=== PATIENT | female | born 1945 | race Caucasian/White ===

== ENCOUNTER 2016-09-12 10:03 | Outpatient (CLI) | payer MEDICARE ==
[~2016-09-12] VITALS: Ht 165.1 cm; Wt 85.5 kg
[2016-09-12 10:53] VITALS: BP 82/57; Ht 165.1 cm; Wt 85.5 kg
[2016-09-12] MEDS ORDERED: LEVOTHYROXINE100 MCG PO (10:55)
--- NOTE | 2016-09-12 13:40 | NUR ---
1330 AWAKE & ALERT SITTING UP IN BED WATCHING TV. 1ST UNIT PRBC'S INFUSING PER BLOOD TUBING & ALARUS PUMP @ 175ML/HR. NO SHORTNESS OF BREATH OR DIFFICULTY BREATHING. NO COMPLAINTS OR REQUESTS VOICED. RATE INCREASED TO 200ML/HR PER ALARUS PUMP. Joe MCKENZIE R.N.
--- NOTE | 2016-09-12 18:12 | NUR ---
1230 1ST UNIT BLOOD CHECKED AT BEDSIDE BY THIS NURSE AND BEKA CAMPOS RN INITIATED BY ALARIS PUMP AT 50/CC/HR. 1245 DENIES PROBLEMS RATE INCREASED TO 75/CC/HR 1300 RATE INCREASED TO 125/CC/HR. 1315 RATE INCREASED TO 175/CC/HR 1330 RATE INCREASED TO 200/CC/HR 1400 IV PANTENT, RATE REMAINS AT 200/CC/HR DENIES PROBLEMS 1445 BLOOD COMPLETED, LINE BEING FLUSHED WITH NS. 1500 2ND UNIT CHECKED AT BEDSIDE BY THIS NURSE AND TONY HERRERA RN INITIATED BY ALARIS PUMP AT 50/CC/HR 1515 RATE INCREASED TO 75/CC/HR 1530 RATE INCREASED TO 125/CC/HR 1545 RATE INCREASED TO 175/CC/HR 1600 RATE INCREASED TO 200/CC/HR 1630 DECLINED OFFER OF FOOD ASSISSTED UP TO BR VOIDS LG AMT. IV PATENT. 1702 BLOOD HAS COMPLETED. LINE BEING FLUSHED WITH NS. 1802ONE HOUR POST V.S. GOOD IV DC'D WITH CATH INTACT. POST CHECK DC INSTS GIVEN, VOICED UNDERSTANDING, RELEASED AMB WITH SPOUSE.
== END 2016-09-12 18:11 | disposition home or self-care (01) ==
LOC: D.OPS 10:03
DX: D64.9 Anemia, unspecified (principal)

== ENCOUNTER → 2016-09-19 13:19 | Outpatient (CLI) | payer MEDICARE ==
[2016-09-12 10:53] VITALS: BMI 31.3
[~2016-09-19 13:19] MED LIST: LEVOTHYROXINE100 MCG PO
== END | disposition home or self-care (01) ==
LOC: D.MAMMO 10:00
DX: N63 Unspecified lump in breast (principal)

== ENCOUNTER → 2016-10-18 08:29 | Outpatient (CLI) | payer MEDICARE ==
[2016-09-12 10:53] VITALS: BMI 31.3
== END | disposition home or self-care (01) ==
LOC: D.CT 08:29
DX: C50.919 Malignant neoplasm of unspecified site of unspecified female breast (principal); D64.9 Anemia, unspecified

== ENCOUNTER 2016-11-24 06:59 | Day surgery (SDC) | payer MEDICARE ==
[~2016-11-24] VITALS: Ht 165.1 cm; Wt 79.8 kg
--- NOTE | ~2016-11-24 | OP ---
PATIENT NAME: RENEA SINGLETARY MEDICAL RECORD: [id number] :47 LOCATION:D.OPS ADMISSION DATE: SURGEON: KIT SPRAGUE MD DATE OF OPERATION: 11/24/2016 PREOPERATIVE DIAGNOSES: 1. Breast cancer. 2. Coronary artery disease. 3. Hyperthyroidism. POSTOPERATIVE DIAGNOSES: 1. Breast cancer. 2. Coronary artery disease. 3. Hyperthyroidism. PROCEDURES: 1. Left subclavian vein port placement. 2. Fluoroscopic interpretation. SURGEON: Kit Sprague MD REPORT OF THE PROCEDURE: The patient's left chest was prepped and draped in sterile fashion. A needle was used to cannulate the left subclavian vein. The guidewire was advanced with ease. Fluoro was used to note that the wire was in good position in the venous system. A skin incision was made on the left lateral chest and a subcutaneous pouch was made over the pectoral fascia. The port was tunneled between this pouch and the wire exit site. The port was then sutured to the pectoral fascia using interrupted 2-0 Prolenes times 2. The catheter was cut with a beveled tip at 24 cm. The dilator trocar device was placed over the wire and the wire and dilator were removed. The catheter tip was advanced through the trocar with ease and the trocar was removed. The catheter aspirated nonpulsatile dark blood and flushed easily with heparinized saline. Fluoroscopy was used to note that the catheter tip was in good position at the right atrial superior vena caval junction. The subcutaneous tissues were reapproximated with interrupted 3-0 Vicryl and the skin was closed with subcutaneous 5-0 Monocryl. A 5 mL of 0.25% Marcaine with epinephrine were infused into the surrounding tissues and the wound was dressed appropriately. COMPLICATIONS: None. CONDITION: Stable. ANESTHESIA: General endotracheal and local. BLOOD LOSS: Minimal. TRANSINT:[id number] Voice Confirmation ID: [id number] DOCUMENT ID: [id number] OPERATIVE REPORT [id number] HAYDERRENEA KIT MCLEAN MD CC: ANA MARIA WALLACE MD and SUMIT MAGANA MD [id number] DICTATION DATE: 11/24/16 0955 LAUNDRY MANAGER: 11/24/16 12[address] [place] [address]
[2016-11-24 08:29] VITALS: BP 148/75; Ht 165.1 cm; Wt 79.8 kg
[2016-11-24 08:52] LABS: BASOPHILS 0.9 % (0-2); EOSINOPHILS 4.3 % (0-7); HEMATOCRIT 33.4 % (36.0-48.0); HEMOGLOBIN 9.4 g/dL (12-16); LYMPHOCYTES 14.6 % (15-50); MCH 22.6 pg (26.0-34.0); MCHC 28.1 g/dL (31.0-37.0); MCV 80.3 fL (80.0-100.0); MEAN PLATELET VOLUME 10.8 fL (7.4-10.4); MONOCYTES 7.6 % (2-11); NEUTROPHILS 72.6 % (40-80); PLATELET COUNT 191 10x3/uL (130-400); RBC 4.16 10x6/uL (4.00-5.40); RDW 17.7 % (11.5-14.5); WBC 4.5 10x3/uL (4.8-10.8)
[2016-11-24 09:00] LABS: ANION GAP 11.8 mmol/L (8-16); CALCIUM 8.6 mg/dL (8.5-10.1); CARBON DIOXIDE 25.9 mmol/L (21.0-32.0); POTASSIUM - SERUM 3.7 mmol/L (3.5-5.1)
[2016-11-24] MEDS ORDERED: HYDROCODON-ACE1 EAC7 PO (09:49)
--- NOTE | 2016-11-24 12:18 | NUR ---
1115 IV DC WITH CATHER TIP INTACT
== END 2016-11-24 11:30 | disposition home or self-care (01) ==
LOC: D.OPS 06:59
PROVIDERS: Anesthesiology
DX: C50.411 Malignant neoplasm of upper-outer quadrant of right female breast (principal); E05.90 Thyrotoxicosis, unspecified without thyrotoxic crisis or storm; I25.10 Atherosclerotic heart disease of native coronary artery without angina pectoris; Z01.812 Encounter for preprocedural laboratory examination

== ENCOUNTER → 2016-11-28 11:22 | Outpatient (CLI) | payer MEDICARE ==
[2016-11-24 08:29] VITALS: BMI 29.3
[~2016-11-28 11:22] MED LIST changes: +HYDROCODON-ACE1 EAC7 PO
== END | disposition home or self-care (01) ==
LOC: D.ECHO 10:00
DX: C50.411 Malignant neoplasm of upper-outer quadrant of right female breast (principal)

== ENCOUNTER 2016-12-04 15:15 | Inpatient (IN) | payer MEDICARE ==
[~2016-12-04] VITALS: Ht 165.1 cm; Wt 89.1 kg
[2016-12-04 15:52] LABS: BASOPHILS 1.3 % (0-2); EOSINOPHILS 0 % (0-7); HEMATOCRIT 29.6 % (36.0-48.0); HEMOGLOBIN 8.5 g/dL (12-16); LYMPHOCYTES 3.6 % (15-50); MCH 22.7 pg (26.0-34.0); MCHC 28.7 g/dL (31.0-37.0); MCV 78.9 fL (80.0-100.0); MONOCYTES 1.2 % (2-11); NEUTROPHILS 75.9 % (40-80); PLATELET COUNT 168 10x3/uL (130-400); RBC 3.75 10x6/uL (4.00-5.40); RDW 18.1 % (11.5-14.5); WBC 11.8 10x3/uL (4.8-10.8)
[2016-12-04 16:05] LABS: ALBUMIN 3.2 g/dL (3.4-5.0); ANION GAP 15.6 mmol/L (8-16); BILIRUBIN - TOTAL 0.53 mg/dL (0.2-1.3); CALCIUM 8.7 mg/dL (8.5-10.1); CREATININE - SERUM 1.6 mg/dL (0.6-1.3); MAGNESIUM - SERUM 1.9 mg/dL (1.8-2.4); POTASSIUM - SERUM 4.6 mmol/L (3.5-5.1); PROTEIN - SERUM 7.2 g/dL (6.4-8.2)
[2016-12-04 16:07] LABS: INR 1.08 (0.85-1.17); PROTIME 13.9 SECONDS (11.6-15.0)
--- NOTE | 2016-12-04 18:37 | NUR ---
REPORT RECIEVED FROM PETR IN ER. WAITING FOR ROOM 2113 TO BE STAT CLEANED.
[2016-12-04 18:57] LABS: % SATURATION 86 % (15-55); IRON 273 ug/dl (35-150); TOTAL IRON BIND CAPACITY 317 ug/dl (260-445)
[2016-12-04 18:59] LABS: UNSAT IRON BIND CAPACITY 44 ug/dl (150-375)
[2016-12-04 19:13] VITALS: BP 116/67
--- NOTE | 2016-12-04 19:23 | NUR ---
NOTIFIED BY PETR FLORES IN E.R. THAT DR SINGLETON DID SPEAK WITH DR JUAN.
--- NOTE | 2016-12-04 19:47 | NUR ---
RECIEVED TO ROOM 2112 FROM ER VIA STRETCHER. PT CONFUSED, PT ABLE TO STATE CORRECT NAME BUT UNSURE OF PLACE AND TIME. VITALS STABLE. RESPERATIONS EVEN ON O2 AT 3 LITERS VIA NC. LEFT CHEST INFUSAPORT WITH NS INFUSING AT KVO. DRSG INTACT. PT INCONTINENT OF BOWEL, BATH AND LINEN CHANGE COMPLETE. PLACED PT IN HOSPITAL GOWN, AND PLACED ON TELEMETRY. 86 SR PER MT. PT DENIES PAIN OR NEEDS, BED LOW, CL IN REACH, WILL CONT TO MONITOR.
--- NOTE | 2016-12-04 20:59 | NUR ---
HS MEDS GIVEN, MORPHINE 4 MG GIVEN FOR C/O PAIN, PTS DAUGHTER AT BED SIDE, BED LOW, CL IN REACH.
[2016-12-05] VITALS (29 sets, daily range): BP systolic 85–117; BP diastolic 50–97; Ht 165.1 cm; Wt 89.1 kg
--- NOTE | 2016-12-05 03:46 | NUR ---
RESTING WITH EYES CLOSED, RESPERATIONS EVEN, NO S/S DISTRESS NOTED.
--- NOTE | 2016-12-05 04:26 | NUR ---
BLOOD COORDINATOR AT BEDSIDE TO OBTAIN VITALS, CALL LIGHT IN REACH. WILL CONTINUE WITH PLAN OF CARE.
[2016-12-05 05:57] LABS: HEMATOCRIT 29.5 % (36.0-48.0); HEMOGLOBIN 8.5 g/dL (12-16); MCH 22.8 pg (26.0-34.0); MCHC 28.8 g/dL (31.0-37.0); MCV 79.1 fL (80.0-100.0); PLATELET COUNT 143 10x3/uL (130-400); RBC 3.73 10x6/uL (4.00-5.40); RDW 18.1 % (11.5-14.5)
[2016-12-05 06:03] LABS: WBC 8.4 10x3/uL (4.8-10.8)
[2016-12-05 06:12] LABS: ALBUMIN 3.2 g/dL (3.4-5.0); ANION GAP 16.1 mmol/L (8-16); BILIRUBIN - TOTAL 0.5 mg/dL (0.2-1.3); CALCIUM 8.8 mg/dL (8.5-10.1); CARBON DIOXIDE 20.9 mmol/L (21.0-32.0); PROTEIN - SERUM 6.9 g/dL (6.4-8.2)
[2016-12-05 06:14] LABS: CREATININE - SERUM 2.5 mg/dL (0.6-1.3)
[2016-12-05 06:56] LABS: ANISOCYTOSIS OCC; EOSINOPHILS 2 % (0-7); LYMPHOCYTES 13 % (15-50); MONOCYTES 1 % (2-11); NEUTROPHILS 76 % (40-80); PELGER HUET 1+; PLATELET ESTIMATE NORMAL; ROULEAUX OCC
--- NOTE | 2016-12-05 07:00 | NUR ---
REPORT RECEIVED FROM OFF [facility] NURSE. PT DISORIENTED TO TIME SAYING "20, 20, 20" REORIENTED TO 2017. NICOLE. BILATERAL PRODUCT SAFETY MANAGER EQUAL BUT WEAK. ABLE TO TO MOVE LOWER EXTEMITIES WITH EASE. HEAD KEEPS TURNING TO HER RIGHT SIDE. SEE FLOW SHEET FOR REMAINING ASSESSMENT. BREATHING NORMAL AND UNLABORED. DENIES PAIN AT THIS TIME. CALL LIGTH INR EACH. WILL CONT POC
[2016-12-05 09:33] LABS: CHOL - HDL RATIO 3.9 ratio (2.3-4.1); LDL-HDL RATIO 2.3 ratio (1.5-3.5)
--- NOTE | 2016-12-05 11:00 | NUR ---
ST ELEVATION WAS NOTICED BY [employer]. DR GALLARDO ORDER STAT EKG. 12 LEAD SHOWS ACUTE MO. DR MURRAY CONSULTED. AT BED SIDE. PT DENIES CHEST PAIN. PT NON DIAPHORETIC OR SOB. PER CARDIOLOGY, TRANSFER TO ICU. LAB EMZYMES DRAWN BUT RESULTS NOT RECIEVED. TRANSFERED TO ICU IN A STABLE CONDITION. VSS.
--- NOTE | 2016-12-05 12:09 | NUR ---
1200- REC'D PT TO ICU, VVSS, AFEBRILE, DENIES PAIN, ACCELERATED JUNCTIONAL RYTHM ON CM. BP 100/85. HR 63, ACCELERATED JUNCTIONAL RYTHM ON CM. PAGED AND SPOKE TO DR DILL AND REPORT GIVEN.
[2016-12-05 12:24] LABS: HEMATOCRIT 27.6 % (36.0-48.0); MCV 79.3 fL (80.0-100.0); PLATELET COUNT 115 10x3/uL (130-400); RBC 3.48 10x6/uL (4.00-5.40); RDW 18.3 % (11.5-14.5)
[2016-12-05 12:25] LABS: WBC 6.1 10x3/uL (4.8-10.8)
[2016-12-05 12:30] LABS: APTT 32.3 SECONDS (22.8-39.4); INR 1.26 (0.85-1.17); PROTIME 15.7 SECONDS (11.6-15.0)
[2016-12-05 13:03] LABS: CREATINE KINASE 906 UL (21-215)
[2016-12-05 13:04] LABS: TROPONIN-I 33.987 ng/mL (0.000-0.060)
[2016-12-05 13:05] LABS: CKMB 100.1 U/L (0.0-3.6)
--- NOTE | 2016-12-05 13:21 | NUR ---
CALLED CE TO DR QUIÑONEZ AND REC'D NEW ORDERS.
--- NOTE | 2016-12-05 13:47 | NUR ---
HEPARIN GTT STARTED AND DR BLAKELY HERE AND DR MALONE ROUNDED. PT TO NM FOR VQ SCAN.
--- NOTE | 2016-12-05 16:29 | NUR ---
DR QUIÑONEZ HERE. DOPAMINE STARTED. PT WITH N&V. SM AMT DARK EMESIS. DR QUIÑONEZ AT BS. REC'D ORDERS FOR PROTONIX.
[2016-12-05 17:08] LABS: HEMATOCRIT 26.4 % (36.0-48.0)
--- NOTE | 2016-12-05 17:17 | NUR ---
OCCULT EMESIS POSITIVE, CALLED RESULTS TO DR GODWIN. REC'D ORDERS TO DC HEP GTT AND PROTONIX TO START.
[2016-12-05 17:23] LABS: HEMOGLOBIN 7.4 g/dL (12-16)
--- NOTE | 2016-12-05 17:36 | NUR ---
H&H RESULTED, 2UPRBC'S ORDERED. HBG 7.4.
--- NOTE | 2016-12-05 18:46 | NUR ---
1ST U PRBCS STARTED. PT UNABLE TO SIGN CONCENT FORM BUT VERBILIZES CONCENT TO GIVE PRBC'S.
--- NOTE | 2016-12-05 19:30 | NUR ---
REC'D TO CARE, SEE SINGLE RESOURCE BOSS. U/S TECH COMPLETING ORDERED TESTS. UNIT #1 OF 2 PRBC INFUSING TO L CHEST INFUSAPORT. IVF PER FLOWSHEET. CM - ACC JUNCTIONAL, OCC PVC. PT LETHARGIC WITH ANSWER APPROP AND MARYBEL WEAKLY. NAVAS CATH PATENT AND DRAINING HAZY YELLOW URINE. EXTR COOL, SLIGHT MOTTLING NOTED TO EXTR. TEMP 97.6 - WARM BLANKET PROVIDED. ALARMS ON AND C/L IN REACH.
--- NOTE | 2016-12-05 20:06 | NUR ---
DR. GODWIN UPDATED VIA PHONE. RECENT LAB, U/S AND STATUS REPORT GIVEN. WILL TITRATE DOPAMINE UP 7.5 MCG/KG/MIN NEEDED. FAMILY AT BS AND UPDATED. CODE STATUS CLARIFIED FULL CODE. PHONE PASSWORD SET UP.
--- NOTE | 2016-12-05 20:50 | NUR ---
UNIT #1 PRBC COMPLETE, NO SIGN OF ADVERSE RXN.
--- NOTE | 2016-12-05 20:55 | NUR ---
BEGIN UNIT #2 PRBC PER MD ORDER, PER HOSPITIAL PROTOCOL.
[2016-12-05 21:00] LABS: CKMB 83.8 U/L (0.0-3.6); CREATINE KINASE 196 UL (21-215)
[2016-12-05 21:01] LABS: TROPONIN-I 22.799 ng/mL (0.000-0.060)
--- NOTE | 2016-12-05 21:10 | NUR ---
UNIT #2 PRBCS INFUSING NO SIGN OF ADVERSE RXN. PT COOPERATIVE, DENIES PAIN OR NEEDS.
[2016-12-05 22:06] LABS: CREATININE - URINE 124.4 mg/dL (30-125); PRO/CRE RATIO URINE 0.7 mg/g; PROTEIN - URINE 83.3 mg/dL (0.0-11.9)
[2016-12-05 22:18] LABS: APPEARANCE CLEAR (CLEAR); BILIRUBIN NEGATIVE (NEGATIVE); COLOR YELLOW (YELLOW); GLUCOSE NEGATIVE (NEGATIVE); KETONE NEGATIVE (NEGATIVE); NITRITE NEGATIVE (NEGATIVE); PROTEIN TRACE mg/dL (NEGATIVE); UROBILINOGEN NORMAL (NORMAL)
[2016-12-05 22:19] LABS: BACTERIA MANY /hpf (NONE SEEN); EPITHELIAL CELLS 0-5 /hpf (0-5); RED CELLS - URINE 0-5 /hpf (0-5)
--- NOTE | 2016-12-05 23:00 | NUR ---
REASSESSMENT PER FLOWSHEET, NO ACUTE CHANGES. LESS CONFUSED, ANSWERING ALL QUESTIONS APPROP. MARYBEL TO COMMAND AND EQUALLY. VSS. ALARMS ON AND C/L IN REACH.
[2016-12-06] VITALS (58 sets, daily range): BP systolic 84–136; BP diastolic 34–100
--- NOTE | 2016-12-06 00:02 | NUR ---
UNIT #2 PRBCS COMPLETE, NO SIGN OF ADVERSE RXN. PT REPOSITIONED UP IN BED FOR COMFORT. ORAL CARE PROVIDED.
[2016-12-06 00:35] LABS: MCH 24.6 pg (26.0-34.0); MCHC 30.7 g/dL (31.0-37.0); MCV 80.1 fL (80.0-100.0); PLATELET COUNT 107 10x3/uL (130-400); RBC 4.07 10x6/uL (4.00-5.40); RDW 16.8 % (11.5-14.5); WBC 5.2 10x3/uL (4.8-10.8)
[2016-12-06 00:36] LABS: HEMATOCRIT 32.6 % (36.0-48.0)
--- NOTE | 2016-12-06 01:49 | NUR ---
COMPLETE BATH AND LINEN CHANGE DONE. DA-CARE, NAVAS CARE DONE. PT UP IN BED TO L SIDE. DENIES NEEDS. NO CHANGE IN NEURO ASSESSMENT.
--- NOTE | 2016-12-06 03:00 | NUR ---
REASSESSMENT PER FLOWSHEET, NO ACUTE CHANGES. PT REPOSITIONING SELF IN BED MORE. GIVEN ICE CHIPS PER REQUEST. VSS. DOPAMINE CONT AT 5 MCG/KG/MIN.
[2016-12-06 04:22] LABS: CREATINE KINASE 692 UL (21-215); TROPONIN-I 21.212 ng/mL (0.000-0.060)
[2016-12-06 05:05] LABS: EOSINOPHILS 0 % (0-7); HEMOGLOBIN 10.1 g/dL (12-16); IMMATURE GRANULOCYTES 0.8 % (0-5); MCH 24.9 pg (26.0-34.0); MCHC 30.6 g/dL (31.0-37.0); MCV 81.5 fL (80.0-100.0); MONOCYTES 10.7 % (2-11); NEUTROPHILS 74.5 % (40-80); PLATELET COUNT 114 10x3/uL (130-400); RBC 4.05 10x6/uL (4.00-5.40); RDW 17.2 % (11.5-14.5); WBC 3.9 10x3/uL (4.8-10.8)
[2016-12-06 05:37] LABS: ALBUMIN 2.7 g/dL (3.4-5.0); ANION GAP 15.4 mmol/L (8-16); BILIRUBIN - TOTAL 1.7 mg/dL (0.2-1.3); CALCIUM 7.3 mg/dL (8.5-10.1); CARBON DIOXIDE 19.2 mmol/L (21.0-32.0); CREATININE - SERUM 1.9 mg/dL (0.6-1.3); POTASSIUM - SERUM 4.6 mmol/L (3.5-5.1); PROTEIN - SERUM 5.9 g/dL (6.4-8.2)
--- NOTE | 2016-12-06 05:56 | NUR ---
PT UP IN BED, ADMIN PO MED PER ORDERS, NO DIFFICULTY SWALLOWING.
--- NOTE | 2016-12-06 06:08 | NUR ---
AM LABS AND STATUS REPORT GIVEN TO DR. GODWIN, NO NEW ORDERS.
--- NOTE | 2016-12-06 08:26 | NUR ---
AND DAUGHTER IN THIS MORNING TO SEE PATIENT. UPDATE PROVIDED.
[2016-12-06 09:18] LABS: FOLATE (FOLIC ACID) - SERUM 4.9 ng/mL (>3.0)
--- NOTE | 2016-12-06 09:29 | NUR ---
AT BEDSIDE. QUESTIONS ANSWERED. MORNING MEDICATIONS PROVIDED. ORAL INTAKE NO DIFFICULTIES.
--- NOTE | 2016-12-06 10:14 | NUR ---
PATIENT IS AWAKE AND ALERT. SHE STATES SHE LIVES AT HOME WITH HER , Licha. SHE STATES THAT SHE IS INDEPENDENT IN HER ADL'S. PATIENT STATES HER WILL DRIVE HER HOME AT DISCHARGE. PATIENT'S PCP IS DR. MAGANA. SHE GETS HER MEDICATION AT [facility]. THERE ARE 3 STEPS TO ENTER HER HOME AND SHE STATES SHE DOES NOT HAVE ANY PROBLEM WITH THEM. PATIENT DENIES EVER HAVING HOME HEALTH AND DENIES USE OF ANY DME. PATIENT HAS ADULT CHILDREN AND A SISTER THAT ALSO LIVES IN [place] AND ASSIST NEEDED. PATIENT'S 'S PHONE: [phone]. NO DISCHARGE NEEDS IDENTIFIED A THIS TIME. PATIENT MAY BENEFIT FROM HOME HEALTH AT [facility].
--- NOTE | 2016-12-06 10:32 | NUR ---
Is the patient Alert and Oriented? Yes 0 * How many steps to enter\exit or inside your home? 3 0 * PCP DR. MAGANA 0 * Pharmacy [facility] 0 * Preadmission Environment Home with Family 0 * ADLs Independent 0 * Equipment None 0 * List name and contact numbers for known caregivers / representatives who currently or will assist patient after discharge: SPOUSE: Hamida SINGLETARY [phone] 0 * Community resources currently utilized None 0 * Additional services required to return to the preadmission environment? No 0 * Can the patient safely return to the preadmission environment? Yes 0 * Has this patient been hospitalized within the prior 30 days at any hospital? No
--- NOTE | 2016-12-06 12:26 | NUR ---
DR MALONE BY TO SEE PATIENT. ASKED FOR NS TO BE TURNED DOWN TO 100ML/HR FROM 200ML/HR.
--- NOTE | 2016-12-06 15:21 | NUR ---
VISITORS AT BEDSIDE. SAYS PT C/O BACK HURTING. REPOSITIONED FOR COMFORT. ALSO SAYS HAS SOME NAUSEA AND LOWER ABD HURTING. ZOFRAN GIVEN FOR NAUSEA.
--- NOTE | 2016-12-06 15:23 | NUR ---
2 GOLD RINGS FROM PATIENT HAND GIVEN TO FOR SAFE KEEPING SINCE HAS SWELLING IN HANDS.
--- NOTE | 2016-12-06 16:57 | NUR ---
CVL DRESSING CHANGED. PT HAD PORT PLACED SEPT 22. INCISION WITH NOTED HEALING. BEGINNING SECTION SHOWS REDNESS AND YELLOW DISCHARGE ROUGHLY THE SIZE OF AN ERASER HEAD. SITE THOROUGHLY CLEANED WITH CLORHEXADINE AND CLEAR DRESSING PLACED. WILL ALERT SURGEON OF SIGNS OF INFECTION.
--- NOTE | 2016-12-06 17:51 | NUR ---
PT HR DIPPING DOWN INTO UPPER 50'S. WENT IN TO CHECK ON HER AND REPOSITION HER. PY FOUND TO BE SOILED WITH SMALL AMOUNT OF GREEN/BLACKISH STOOL. SAMPLE COLLECTED. PT CLEANED UP. PT RESPIRATORY RATE INCREASED AND LABORED. ASKED FOR BLOOD GAS.
--- NOTE | 2016-12-06 18:12 | NUR ---
SPOKE WITH NAYELY SHAW REGARDING PT ABG VALUES. ASKED FOR D5 1/2NS WITH 3AMPS BICARB AND PUSH OF 1AMP BICARB. ORDERS ENTERED. DR OGLESBY HAS BEEN PAGED X2, NOT YET HEARD BACK FROM HIM TO NOTIFY OF PORT INCISION. ACCORDING TO RECORDS IN PT FILE, DR SPRAGUE PERFORMED ORIGINAL SURGERY. DR OGLESBY GREEN WARE CASTER FOR TODAY.
--- NOTE | 2016-12-06 19:30 | NUR ---
REPORT RECEIVED AND CARE ASSUMED INITIAL SHIFT ASSESSMENT COMPLETED SEE FLOWSHEET. DR. WALLACE HERE AND DISCUSSING PT'S STATUS WITH JEWEL RN. ORDERS ENTERED PER DR. WALLACE WHO VERBALIZED HE WANTS A DOPPLER OR THE PORTAL VEIN WITH THE US ORDERED FOR TOMORROW IVF AND LINES ARE CURRENT AND NOT DUE TO BE CHANGED AT THIS TIME. ALL ALARMS ARE SET AND VERIFIED. NEURO CHECKS ARE WITHIN NORMAL LIMITS AND NOTED THE LEFT DEVIATION OF THE TONGUE AND PT CONTINUALLY TURNING HEAD TO THE LEFT IS NOT A NEW FINDING. PEDAL PULSES ARE EXTREMELY DIFFICULT TO DOPPLER AND ARE FAINT.
--- NOTE | 2016-12-06 21:45 | NUR ---
DR. GODWIN CALLED TO OBTAIN UPDATE ON PT. DISCUSSED AT GREAT LENGTH CURRENT SITUATION. RT AT BEDSIDE FOR ABG DUE TO ABRUPT CHANGE IN MENTATION. PT HAS RAPIDLY BECOME EXTREMELY ANXIOUS, INCREASINGLY POOR COLOR AND LABORED BREATHING. NEW ORDERS RECEIVED AND NOTED.
--- NOTE | 2016-12-06 22:10 | NUR ---
LEFT MESSAGE FOR SPOUSE TO RETURN CALL TO INFORM THEM OF SITUATION WITH PT. PT IS AT THIS TIME RESTING QUIETLY WITHOUT THE GREAT ANXIETY AND AGGITATION SHE DID HAVE AT 2144. PT HAS RECEIVED LASIX 40MG IV AND DUONEB UPDRAFT. MONITORING VERY CLOSELY
--- NOTE | 2016-12-06 22:28 | NUR ---
DR. GODWIN CALLED TO CHECK ON PT. DISCUSSED ABG AND CURRENT STATUS OF PT IN WHICH SHE IS RESTING QUIETLY WITH SB/P RETURNING TO BASELINE OF LOW 90'S, URING OUTPUT OF ONLY 30CC SINCE ADMINISTRATION OF LASIX APPROXIMATELY 45 MIN AGO. PT DID RECEIVE UPDRAFT. NEW ORDERS RECEIVED TO PLACE PT ON BIPAP AND REPEAT ABG AFTER 1 HOUR. DID DISCUSS THE DISCONTINUATION OF IVF WHICH HAD CONTAINED 3 AMPS OF BICARB WITH NO NEW INTERVENTION ORDERED
--- NOTE | 2016-12-06 22:30 | NUR ---
URINE OUTPUT IN PAST HOUR TOTAL OF 125CC
--- NOTE | 2016-12-06 23:00 | NUR ---
SHIFT REASSESSMENT COMPLETED SEE FLOWSHEET. PT AT THIS TIME ON BIPAP AND TOLERATING WELL. URINE OUTPUT HAS INCREASED DRAMATICALLY
--- NOTE | 2016-12-06 23:30 | NUR ---
URINE OUTPUT FOR THIS PAST HOUR 450.
--- NOTE | 2016-12-06 23:45 | NUR ---
RT AT BEDSIDE FOR ABG PER ORDER
--- NOTE | 2016-12-06 23:47 | NUR ---
RT INCREASING FIO2 TO 50% IN RESPONSE TO ABG RESULTS
[2016-12-07] VITALS (83 sets, daily range): BP systolic 72–133; BP diastolic 35–99
--- NOTE | 2016-12-07 01:00 | NUR ---
PT RESTING WELL WHILE ON BIPAP. CONTINUE ON DOPAMINE WITH CHANGES ON IV FLOWSHEET. CONTINUE TO MONITOR PER STANDARD ICU PROTOCOL
--- NOTE | 2016-12-07 03:00 | NUR ---
SHIFT REASSESSMENT COMPLETED SEE FLOWSHEET. SO ACUTE CHANGES
--- NOTE | 2016-12-07 04:55 | NUR ---
PHONE CALL MADE TO ZORA PRICE RE OTHER PTS. MADE HIM AWARE PT IS ON BIPAP. JUST LET HIM KNOW WHEN PT BECAME SOB LAST PM CITLALI PRICE PHONED AND GAVE ORDERS FOR TXS/BIPAP. PT TOLERATING WELL AND FOLLOWUP ABGS WERE IMPROVING.
--- NOTE | 2016-12-07 05:00 | NUR ---
PT TAKEN OFF BIPAP FOR BREAK AND PLACED ON 6LN/C RT MADE AWARE OF THIS. COMPLETE BATH GIVEN AND LINENS CHANGED. CONTINUE TO TITRATE DOPAMINE FOR PARAMETERS ORDERED
[2016-12-07 05:58] LABS: BASOPHILS 0.4 % (0-2); EOSINOPHILS 0.2 % (0-7); HEMOGLOBIN 10.6 g/dL (12-16); LYMPHOCYTES 15.6 % (15-50); MCH 24.5 pg (26.0-34.0); MCHC 30.3 g/dL (31.0-37.0); MCV 80.8 fL (80.0-100.0); MONOCYTES 14.5 % (2-11); NEUTROPHILS 67.3 % (40-80); PLATELET COUNT 110 10x3/uL (130-400); RBC 4.33 10x6/uL (4.00-5.40); RDW 17.4 % (11.5-14.5)
[2016-12-07 06:06] LABS: WBC 5.5 10x3/uL (4.8-10.8)
[2016-12-07 06:14] LABS: ALBUMIN 2.8 g/dL (3.4-5.0); BILIRUBIN - TOTAL 1.5 mg/dL (0.2-1.3); CALCIUM 7.9 mg/dL (8.5-10.1); CARBON DIOXIDE 22.3 mmol/L (21.0-32.0); PROTEIN - SERUM 6.2 g/dL (6.4-8.2)
[2016-12-07 06:15] LABS: ANION GAP 15.4 mmol/L (8-16); CREATININE - SERUM 1.4 mg/dL (0.6-1.3); POTASSIUM - SERUM 3.7 mmol/L (3.5-5.1)
--- NOTE | 2016-12-07 06:15 | NUR ---
US TECH AT BEDSIDE
--- NOTE | 2016-12-07 08:10 | NUR ---
DR GODWIN HAS BEEN BY TO SEE PATIENT. DISCUSSED CARE AND PROGRESS THROUGH THE NIGHT. WANTS PHYSICAL THERAPY ORDER. DR SPRAGUE BY TO CHECK ON PORT PLACEMENT INCISION. WILL ORDER ANTIBIOTIC OINTMENT. DR JUAN HAS ALSO BEEN BY AND EXAMINED PATIENT. WANTS CTA.
--- NOTE | 2016-12-07 10:50 | NUR ---
PT HR ELEVATED AND SUSTAINED 150'S - 160'S. [address] GODWIN NOTIFIED. METOPROLOL 5MG ORDER RECEIVED. MEDICATION GIVEN. HR REDUCED TO 140'S THEN BECAME BRADICARDIC EXTREMELY QUICKLY AND THEN WENT ASYSTOLE. DR GODWIN AT BEDSIDE AT THIS TIME. PRECORDIAL THUMP UTILIZED. BRADICARDIA HR 40'S. ATROPINE REQUESTED AND ADMINISTERED. LEVOPHED ORDERED FOR TITRATION.
--- NOTE | 2016-12-07 11:00 | NUR ---
REASSESSMENT COMPLETE. PT DENIES PAIN. REPOSITIONED FOR COMFORT. CURRENTLY ON 7L NC.
--- NOTE | 2016-12-07 11:00 | NUR ---
NUTRITION F/U PT CURRENTLY ON BIPAP. CLEAR LIQUID DIET. RECOMMEND ADVANCE DIET TO FULL LIQUID WHEN MEDICALLY FEASIBLE. RD FOLLOWING
--- NOTE | 2016-12-07 11:42 | NUR ---
VSS. DR GODWIN HAS BEEN BACK BY TO SEE PATIENT. DR GALLARDO NOTIFIED OF EVENTS AND IS HERE ON UNIT. PT RESTING AT THIS TIME. DENIES PAIN.
--- NOTE | 2016-12-07 11:54 | NUR ---
DAUGHTER SULEMA CALLED FOR UPDATE. UPDATE PROVIDED ON RECENT EVENTS. PT STABLE AND RESTING AT THIS TIME. VSS. SHE WILL BE UP TO VISIT AFTER WORK THIS AFTERNOON.
--- NOTE | 2016-12-07 15:25 | NUR ---
FAMILY AT BEDSIDE. UPDATED ON THIS MORNINGS EVENTS. ALL QUESTIONS ANSWERED. PT RESTING QUIETLY. DENIES NEEDS.
--- NOTE | 2016-12-07 17:05 | NUR ---
DR GODWIN CONTACTED NURSE TO CHECK UP ON PATIENT. STATUS REVIEWED. CURRENT VITAL SIGNS PROVIDED TO HIM. IMAGING CONTACTED TO SEE ABOUT PERFORMING CTA NOW. ASKED TO HOLD OFF DOING MRI AND CTA EARLIER IN THE DAY DUE TO PATIENT INSTABILITY POST CODE. PT CANNOT GO TO MRI WHILE ON DRIPS. CTA REQUIRES PATIENT TO BE COMPLETELY STILL. PT UNABLE TO KEEP HEAD IN ONE POSITION FOR LONGER THAN 3-5 SECONDS. CONSTANTLY MOVES HEAD BACK AND FORTH. TO REEVALUATE TOMORROW.
--- NOTE | 2016-12-07 17:10 | NUR ---
PATIENT ON 2 DRIPS FOR BP. PER VICTORIANO, WILL CHECK TOMORROW TO SEE IF CAN DO MRI BRAIN.
--- NOTE | 2016-12-07 18:21 | NUR ---
DAUGHTER AT BEDSIDE. UPDATE PROVIDED. PT PARTIAL LINEN CHANGE DUE TO BBQ SAUCE ON BEDDING AND GOWN. PT PULLED UP AND REPOSITIONED FOR COMFORT.
--- NOTE | 2016-12-07 19:30 | NUR ---
REC'D TO CARE, HYPOID GEAR GENERATOR PER FLOWSHEET. PT AWAKE, SLIGHTLY LETHARGIC, BUT ANSWERS ALL QUESTIONS APPROP. VSS. IVFS INFUSING TO L CHEST INFUSAPORT, SEE FLOWSHEET, WILL TITRATE GTTS PER MD ORDER. NAVAS CATH PATENT AND DRAINING CLEAR, YELLOW URINE. ALARMS ON AND C/L IN REACH.
--- NOTE | 2016-12-07 21:25 | NUR ---
FAMILY AT BS, UPDATE GIVEN AND QUESTIONS ANSWERED.
--- NOTE | 2016-12-07 22:55 | NUR ---
REASSESSMENT PER FLOWSHEET, NO ACUTE CHANGES. LEVOPHED WEANED OFF AT THIS TIME. PT RESTING QUIETLY, DENIES NEEDS.
[2016-12-08] VITALS (65 sets, daily range): BP systolic 82–143; BP diastolic 42–98
--- NOTE | 2016-12-08 01:21 | NUR ---
COMPLETE BATH AND LINEN CHANGE DONE.
--- NOTE | 2016-12-08 03:19 | NUR ---
REASSESSMENT PER FLOWSHEET, NO ACUTE CHANGES. PT GIVEN WATER PER REQUEST. DENIES OTHER NEEDS. PCXR DONE.
--- NOTE | 2016-12-08 05:30 | NUR ---
AM LAB DRAWN.
[2016-12-08 05:49] LABS: BASOPHILS 0.4 % (0-2); EOSINOPHILS 0 % (0-7); HEMATOCRIT 32.4 % (36.0-48.0); HEMOGLOBIN 9.8 g/dL (12-16); IMMATURE GRANULOCYTES 1.2 % (0-5); LYMPHOCYTES 13.6 % (15-50); MCH 24.6 pg (26.0-34.0); MCHC 30.2 g/dL (31.0-37.0); MCV 81.4 fL (80.0-100.0); MONOCYTES 10.9 % (2-11); NEUTROPHILS 73.9 % (40-80); PLATELET COUNT 96 10x3/uL (130-400); RBC 3.98 10x6/uL (4.00-5.40)
[2016-12-08 06:13] LABS: WBC 11.2 10x3/uL (4.8-10.8)
[2016-12-08 06:17] LABS: ALBUMIN 2.6 g/dL (3.4-5.0); ANION GAP 15.1 mmol/L (8-16); BILIRUBIN - TOTAL 1.41 mg/dL (0.2-1.3); CARBON DIOXIDE 21.1 mmol/L (21.0-32.0); CREATININE - SERUM 1.4 mg/dL (0.6-1.3); POTASSIUM - SERUM 3.2 mmol/L (3.5-5.1); PROTEIN - SERUM 6.3 g/dL (6.4-8.2)
[2016-12-08 06:45] LABS: PLATELET ESTIMATE DECREASED
--- NOTE | 2016-12-08 08:03 | NUR ---
DR GODWIN BY TO SEE PATIENT.
--- NOTE | 2016-12-08 08:13 | NUR ---
PT PULLED UP AND POSITIONED FOR BREAKFAST.
--- NOTE | 2016-12-08 09:09 | NUR ---
DR JUAN CALLED TO NOTIFY PT UNABLE TO HOLD HEAD STILL AND NOT ABLE TO STABILIZE HEAD TO PERFORM CTA. HE CAME TO SEE HER AND SPEAK ABOUT HER HEAD MOVEMENTS. SAYS WE WILL HOLD OFF FOR NOW ON THE TEST AND WILL TRY TO PERFORM IT UNDER SOME SEDATION WHEN PT MORE STABLE.
--- NOTE | 2016-12-08 09:13 | NUR ---
FAMILY AT BEDSIDE AT THIS TIME. UPDATE PROVIDED
--- NOTE | 2016-12-08 10:25 | NUR ---
RESPIRATORY TX IN PROGRESS.
--- NOTE | 2016-12-08 10:57 | NUR ---
PHYSICAL THERAPY AT BEDSIDE. PT SET UP TO SIDE OF BED. NO CHANGE IN VITALS.
--- NOTE | 2016-12-08 11:45 | NUR ---
LUNCH TRAY TAKEN IN TO PATIENT ROOM. PT SLEEPING AT THIS TIME.
--- NOTE | 2016-12-08 12:46 | NUR ---
YASMANI FROM MRI CALLED TO SEE IF COULD GET PATIENT. PATIENT STILL ON DOPAMINE.
--- NOTE | 2016-12-08 12:57 | NUR ---
PT HAD REFUSED LUNCH TRAY. SAYS JUST NOT HUNGRY. ORDER FOR ENSURE OBTAINED
--- NOTE | 2016-12-08 13:19 | NUR ---
PATIENT STILL ON PRESSORS, CHECK ON 12-09-16 TO SEE IF CAN DO MRI, PER Cassidy HEAD.
--- NOTE | 2016-12-08 15:00 | NUR ---
AT BEDSIDE. UPDATE PROVIDED
--- NOTE | 2016-12-08 16:24 | NUR ---
PT OFF UNIT FOR CT OF CHEST
--- NOTE | 2016-12-08 16:25 | NUR ---
DR WALLACE HERE TO SEE PATIENT. SPEAKING TO DR GODWIN ON PHONE
--- NOTE | 2016-12-08 17:59 | NUR ---
MEDICATIONS PAUSED TO CHANGE OUT KRAUS NEEDLE. PT UNABLE TO TOLERATE HAVING MEDICATIONS PAUSED. PT BEGAN FEELING LIKE SHE COULDN'T BREATHE. RR INCREASED. PLACED ON BIPAP. RR BECOMING MORE REGULAR. WILL CONTINUE TO MONITOR. LAB AT BEDSIDE TO DRAW.
--- NOTE | 2016-12-08 18:21 | NUR ---
LAB DRAW OBTAINED.
[2016-12-08 18:31] LABS: BASOPHILS 0.3 % (0-2); EOSINOPHILS 0.1 % (0-7); HEMATOCRIT 32.1 % (36.0-48.0); HEMOGLOBIN 9.7 g/dL (12-16); IMMATURE GRANULOCYTES 2.7 % (0-5); LYMPHOCYTES 12.5 % (15-50); MCH 24.4 pg (26.0-34.0); MCHC 30.2 g/dL (31.0-37.0); MCV 80.9 fL (80.0-100.0); MONOCYTES 7.1 % (2-11); PLATELET COUNT 86 10x3/uL (130-400); RBC 3.97 10x6/uL (4.00-5.40); WBC 14.4 10x3/uL (4.8-10.8)
[2016-12-08 18:32] LABS: MEAN PLATELET VOLUME 0 fL (7.4-10.4)
[2016-12-08 18:47] LABS: INR 1.45 (0.85-1.17); PROTIME 17.6 SECONDS (11.6-15.0)
[2016-12-08 19:06] LABS: NEUTROPHILS 77.3 % (40-80); PLATELET ESTIMATE DECREASED
--- NOTE | 2016-12-08 19:30 | NUR ---
RECEIVED CARE OF PT, ASSESSMENT PER FLOWSHEET. PT ALERT AND ORIENTED X 4, ON 50% BIPAP-ABLE TO TAKE BREAKS FOR ORAL CARE AND TO ANSWER QUESTIONS-ORAL CARE PROVIDED REQUESTED AND ICE WATER PROVIDED. HR SR WITH OCC PAC'S NOTED ON CM, CRACKLES AUSCULTATED BILATERALLY WITH DIM BASES, BS HYPO X 4, NAVAS CATH PATENT WITH CONCENTRATED YELLOW URINE IN TUBING, GTT'S INFUSING TO LT CHEST PORT PER FLOWSHEET-SKIN ASSESSMENT PER FLOWSHEET. PT DENIES ANY OTHER NEEDS AT THIS TIME, WILL MONITOR.
[2016-12-08 19:33] LABS: CKMB 2.6 U/L (0.0-3.6); CREATINE KINASE 125 UL (21-215)
[2016-12-08 19:35] LABS: TROPONIN-I 8.511 ng/mL (0.000-0.060)
--- NOTE | 2016-12-08 21:05 | NUR ---
NO VISITORS PRESENT AT THIS TIME, PT DENIES ANY NEEDS, BED LOW, CALL LIGHT IN REACH.
--- NOTE | 2016-12-08 23:30 | NUR ---
REASSESSMENT PER FLOWSHEET, NO ACUTE CHANGES NOTED AT THIS TIME, HR REMAINS SR WITH OCC PAC'S, CONT POC.
[2016-12-09] VITALS (72 sets, daily range): BP systolic 79–134; BP diastolic 48–100
--- NOTE | 2016-12-09 01:49 | NUR ---
PT RESTING IN BED WITH EYES CLOSED, VSS, CONT POC.
--- NOTE | 2016-12-09 03:00 | NUR ---
REASSESSMENT PER FLOWSHEET, NO ACUTE CHANGES NOTED AT THIS TIME. ICE WATER PROVIDED PER REQUEST, VSS, CONT TO MONITOR.
--- NOTE | 2016-12-09 05:54 | NUR ---
PT RESTING IN BED WITH EYES CLOSED, VSS, CONT POC.
[2016-12-09 08:15] LABS: BASOPHILS 0.2 % (0-2); EOSINOPHILS 0.1 % (0-7); HEMATOCRIT 31.8 % (36.0-48.0); HEMOGLOBIN 9.7 g/dL (12-16); IMMATURE GRANULOCYTES 3.4 % (0-5); LYMPHOCYTES 7.2 % (15-50); MCH 24.8 pg (26.0-34.0); MCHC 30.5 g/dL (31.0-37.0); MCV 81.3 fL (80.0-100.0); MONOCYTES 5.3 % (2-11); NEUTROPHILS 83.8 % (40-80); RBC 3.91 10x6/uL (4.00-5.40); RDW 18.9 % (11.5-14.5)
[2016-12-09 08:18] LABS: PLATELET COUNT 112 10x3/uL (130-400); WBC 19.1 10x3/uL (4.8-10.8)
[2016-12-09 08:28] LABS: ALBUMIN 2.7 g/dL (3.4-5.0); ANION GAP 14.3 mmol/L (8-16); BILIRUBIN - TOTAL 1.47 mg/dL (0.2-1.3); CALCIUM 8.1 mg/dL (8.5-10.1); CARBON DIOXIDE 22.2 mmol/L (21.0-32.0); PROTEIN - SERUM 6.3 g/dL (6.4-8.2)
[2016-12-09 08:31] LABS: CREATININE - SERUM 0.9 mg/dL (0.6-1.3); POTASSIUM - SERUM 4.5 mmol/L (3.5-5.1)
--- NOTE | 2016-12-09 18:52 | NUR ---
SPOKE WITH PEANUT BLANCHER. R/T THORACENTESES, DR. CHAO ORDERED TO HOLD ASA AND PROCEDURE WILL BE DONE ONE SUNDAY
--- NOTE | 2016-12-09 19:20 | NUR ---
SHIFT ASSESSMENT COMPLETE, SEE FLOWSHEET FOR ALL FINDINGS. PATIENT A&OX4, FOLLOWS COMMANDS. DIRECTOR OF MEDIA/ARM/LEG STRENGTH 5/5 AND BILATERAL. NSR ON MONITOR. VSS. DENIES NEEDS. WILL MONITOR.
--- NOTE | 2016-12-09 21:00 | NUR ---
NIGHT MEDS GIVEN WITHOUT DIFFICULTY. NO VISIOTRS AT THIS TIME.
--- NOTE | 2016-12-09 23:05 | NUR ---
REASSESSMENT COMPLETE, SEE FLOWSHEET FOR DETAILS. NO ACUTE CHANGES. DENIES NEED AT THIS TIME. CL IN REACH, WILL MONITOR.
[2016-12-10] VITALS (60 sets, daily range): BP systolic 11–129; BP diastolic 7–99
--- NOTE | 2016-12-10 01:05 | NUR ---
RESTING WITH EYES CLOSED. VSS. CL IN REACH.
[2016-12-10 07:04] LABS: HEMATOCRIT 31.3 % (36.0-48.0); HEMOGLOBIN 9.5 g/dL (12-16); MCH 24.8 pg (26.0-34.0); MCHC 30.4 g/dL (31.0-37.0); MCV 81.7 fL (80.0-100.0); PLATELET COUNT 102 10x3/uL (130-400); RBC 3.83 10x6/uL (4.00-5.40); RDW 18.7 % (11.5-14.5); WBC 23.1 10x3/uL (4.8-10.8)
--- NOTE | 2016-12-10 07:08 | NUR ---
PHARMACY CALLED ABOUT RESHEDULING DOXYCYCLINE.
[2016-12-10 07:17] LABS: ALBUMIN 2.8 g/dL (3.4-5.0); BILIRUBIN - TOTAL 1.1 mg/dL (0.2-1.3); CALCIUM 8.4 mg/dL (8.5-10.1); CARBON DIOXIDE 25.2 mmol/L (21.0-32.0); CREATININE - SERUM 1.1 mg/dL (0.6-1.3); PROTEIN - SERUM 6.5 g/dL (6.4-8.2)
[2016-12-10 07:18] LABS: ANION GAP 11.3 mmol/L (8-16); POTASSIUM - SERUM 3.5 mmol/L (3.5-5.1)
[2016-12-10 07:26] LABS: EOSINOPHILS 1 % (0-7); LYMPHOCYTES 4 % (15-50); MONOCYTES 1 % (2-11); NEUTROPHILS 94 % (40-80)
[2016-12-10 07:27] LABS: PLATELET ESTIMATE DECREASED
--- NOTE | 2016-12-10 11:36 | NUR ---
PT UNABLE TO COME OFF IV PUMP. CANNOT DO MRI TODAY. WILL CHECK BACK TOMORROW.
--- NOTE | 2016-12-10 19:00 | NUR ---
PT LAYING IN BED AWAKE AND ALERT. 6 LPM OXYGEN VIA NC. S1S2 PRESENT. RADIAL PULSES WEAK TO PALPATION. PEDAL PULSES PALP. TELEMETRY MONITORING HR OF 100. NAVAS CATHETER TO GRAVITY, SECURED, DRAINING CLEAR YELLOW URINE. SKIN WARM AND DRY. BRUISES NOTED TO ARMS BILAT. LT CHEST SCAB/SORES NOTED. LT CHEST IMPLANTED PORT, PATENT, DRESSING CDI. SEE FLOW SHEET FOR COMPLETE ASSESSMENT. WILL CONTINUE TO MONITOR.
--- NOTE | 2016-12-10 21:00 | NUR ---
DAUGHTER AT BEDSIDE, REPORT GIVEN. QUESTIONS ANSWERED. PT DENIES NEEDS AT THIS TIME. WILL CONTINUE TO MONITOR.
--- NOTE | 2016-12-10 23:00 | NUR ---
REASSESSMENT COMPLETED PER FLOW SHEET, MINIMAL CHANGES NOTED. NO DISTRESS NOTED AT THIS TIME. CALL LIGHT WITHIN REACH. BED IN LOWEST POSITION. WILL CONTINUE TO MONITOR.
[2016-12-11] VITALS (54 sets, daily range): BP systolic 86–118; BP diastolic 51–89
--- NOTE | 2016-12-11 01:00 | NUR ---
PT LAYING IN BED RESTING. DENIES NEEDS AT THIS TIME. CALL LIGHT WITHIN REACH. BED IN LOWEST POSITION. WILL CONTINUE TO MONITOR.
--- NOTE | 2016-12-11 03:00 | NUR ---
REASSESSMENT COMPLETED PER FLOW SHEET, SEE FOR DETAILS. NO DISTRESS NOTED AT THIS TIME. DENIES NEEDS. CALL LIGHT WITHIN REACH. BED IN LOWEST POSITION. WILL CONTINUE TO MONITOR.
[2016-12-11 04:24] LABS: BASOPHILS 0.7 % (0-2); EOSINOPHILS 0.1 % (0-7); HEMATOCRIT 29.6 % (36.0-48.0); HEMOGLOBIN 9.1 g/dL (12-16); IMMATURE GRANULOCYTES 4.5 % (0-5); LYMPHOCYTES 7.5 % (15-50); MCH 24.9 pg (26.0-34.0); MCHC 30.7 g/dL (31.0-37.0); MCV 81.1 fL (80.0-100.0); NEUTROPHILS 82.2 % (40-80); PLATELET COUNT 93 10x3/uL (130-400); RBC 3.65 10x6/uL (4.00-5.40); WBC 18.3 10x3/uL (4.8-10.8)
[2016-12-11 04:41] LABS: ALBUMIN 2.6 g/dL (3.4-5.0); ANION GAP 18.1 mmol/L (8-16); BILIRUBIN - TOTAL 1.15 mg/dL (0.2-1.3); CALCIUM 8.7 mg/dL (8.5-10.1); CARBON DIOXIDE 20.6 mmol/L (21.0-32.0); CREATININE - SERUM 0.9 mg/dL (0.6-1.3); MAGNESIUM - SERUM 2.4 mg/dL (1.8-2.4); PROTEIN - SERUM 6.8 g/dL (6.4-8.2)
[2016-12-11 04:42] LABS: POTASSIUM - SERUM 4.7 mmol/L (3.5-5.1)
--- NOTE | 2016-12-11 05:00 | NUR ---
PT LAYING IN BED RESTING. NO DISTRESS NOTED AT THIS TIME. DENIES NEEDS. CALL LIGHT WITHIN REACH. BED IN LOWEST POSITION. WILL CONTINUE TO MONITOR.
--- NOTE | 2016-12-11 10:40 | NUR ---
NUTRITION F/U PT UP IN CHAIR. PER NURSING PT TOLERATING REG DIET WITH GOOD INTAKE BREAKFAST. DID NOT DRINK ENSURE THIS AM. WILL CONTINUE TO PROVIDE DIET, ENSURE. MONITOR PO INTAKE. RD FOLLOWING
--- NOTE | 2016-12-11 10:45 | NUR ---
PATIENT AWAKES EASILY TO VERBAL STIMULI SKIN WARM AND DRY. ATE 75% OF BREAKFAST. COUGHING UP CLEAR SPUTUM. ABD LARGE SOFT STATES IT IS TENDER, GOOD BOWEL SOUNDS. LEFT SUBCLAVIAN AREA INFUSA PORT WITH SMALL YELLOW AREA ABOVE NEEDLE. DRESSING CHANGE BIO PATCH PLACED OVER YELLOW AREA. YELLOW PATCH DID NOT MOVE WHEN CLEANED. PATIENT STATES THAT AREA IS TENDER. SHE DOES HAVE SOME LEFT SHOULDER DISCOMFORT. 3 DIFFERENT LAB PERSONNEL HAVE TRIED TO DRAW BLOOD ON PATIENT AND HAVE BEEN UNABLE TO OBTAIN BLOOD FOR PTT AT THIS TIME. UP IN CHAIR PER PT TOLERATING WELL. DOPAMINE WEANED OFF PER DR. [email or web address] MONITOR BLOOD PRESSURE
--- NOTE | 2016-12-11 15:11 | NUR ---
TO MRI PER STRETCHER. DEVELOPED A NOSE BLEED DURING SCAN PRESSURE HELD. STOPPED, DEVELOPED AGAIN AFTER MRI SCAN. PATIENT TOLERATED FAIR. CHLORHEXIDINE BATH GIVEN LINEN CHANGED. PATIENT TOLERATE WELL. SISTER HERE AT VISITING TIME. NO DISTRESS. NO MORE NOSE BLEED. OXYGEN IS HUMIFIED AT 3 LITERS PER NC
--- NOTE | 2016-12-11 19:00 | NUR ---
REPORT RECEIVED. SHIFT ASSESSMENT COMPLETED PER FLOW SHEET. PT LAYING IN BED AWAKE WATCHING TV. STATES SHE FEELS MUCH BETTER. REPORTED SOME NOSE BLEED DURING MRI PROCEDURE, THERE IS NO ACTIVE BLEEDING AT THIS TIME. 3 LITER HUMIDIFIED OXYGEN VIA NC. S1S2 PRESENT. RADIAL PULSES PALP. PEDAL PULSES AUDIBLE VIA DOPPLER. SCD'S ON. LT SUBCLAVIAN INFUSAPORT, PATENT INFUSING D5W AT 30 MLS/HR. NAVAS CATHETER TO GRAVITY, SECURED, DRAINING CLEAR JAYNA URINE. SEE FLOW SHEET FOR COMPLETE ASSESSMENT. WILL CONTINUE TO MONITOR.
--- NOTE | 2016-12-11 21:00 | NUR ---
PT LAYING IN BED RESTING, WATCHING T.V. NO DISTRESS NOTED. WILL CONTINUE TO MONITOR.
--- NOTE | 2016-12-11 22:00 | NUR ---
PT LAYING IN BED, AWAKE AND ALERT. BED BATH GIVEN. BED LINENS CHANGED. [facility] GOWN PROVIDED. DENIES NEEDS AT THIS TIME. CALL LIGHT WITHIN REACH. BED IN LOWEST POSITION. WILL CONTINUE TO MONITOR.
--- NOTE | 2016-12-11 23:00 | NUR ---
REASSESSMENT COMPLETED PER FLOW SHEET, SEE FOR DETAILS. NO ACUTE CHANGES NOTED. VSS. DENIES NEEDS AT THIS TIME. CALL LIGHT WITHIN REACH. BED IN LOWEST POSITION. WILL CONTINUE TO MONITOR.
[2016-12-12] VITALS (24 sets, daily range): BP systolic 87–123; BP diastolic 45–80
--- NOTE | 2016-12-12 00:15 | NUR ---
LT SUBCLAVIAN INFUSAPORT LEAKING AROUND SITE, SITE IS RED, AND TENDER. INFUSAPORT REMOVED. WILL CONTINUE TO MONITOR SITE.
--- NOTE | 2016-12-12 03:00 | NUR ---
REASSESSMENT COMPLETED PER FLOW SHEET, SEE FOR DETAILS. NO ACUTE CHANGES NOTED AT THIS TIME. PT DENIES NEEDS. WILL CONTINUE TO MONITOR. CALL LIGHT WITHIN REACH. BED IN LOWEST POSITION.
--- NOTE | 2016-12-12 05:00 | NUR ---
PT LAYING IN BED RESTING. NO DISTRESS NOTED AT THIS MOMENT. DENIES NEEDS. CALL LIGHT WITHIN REACH. BED IN LOWEST POSITION. WILL CONTINUE TO MONITOR.
[2016-12-12 05:27] LABS: BASOPHILS 0.1 % (0-2); EOSINOPHILS 0 % (0-7); HEMATOCRIT 28.4 % (36.0-48.0); HEMOGLOBIN 8.5 g/dL (12-16); IMMATURE GRANULOCYTES 1.1 % (0-5); LYMPHOCYTES 6.2 % (15-50); MCH 24.8 pg (26.0-34.0); MCHC 29.9 g/dL (31.0-37.0); MCV 82.8 fL (80.0-100.0); MONOCYTES 4.4 % (2-11); NEUTROPHILS 88.2 % (40-80); RBC 3.43 10x6/uL (4.00-5.40); RDW 19.9 % (11.5-14.5); WBC 14.9 10x3/uL (4.8-10.8)
[2016-12-12 05:46] LABS: APTT 32.5 SECONDS (22.8-39.4); INR 1.23 (0.85-1.17); PROTIME 15.4 SECONDS (11.6-15.0)
[2016-12-12 05:48] LABS: ALBUMIN 2.6 g/dL (3.4-5.0); ALKALINE PHOSPHATASE 154 U/L (46-116); CALCIUM 8.5 mg/dL (8.5-10.1); CARBON DIOXIDE 24.5 mmol/L (21.0-32.0); CHLORIDE - SERUM 103 mmol/L (98-107); CREATININE - SERUM 0.8 mg/dL (0.6-1.3); MAGNESIUM - SERUM 2.2 mg/dL (1.8-2.4); PROTEIN - SERUM 6.2 g/dL (6.4-8.2); SODIUM 137 mmol/L (136-145); UREA NITROGEN 11 mg/dL (7-18); eGFR NON AFRICAN AMERICAN 75 mL/min (90-120)
[2016-12-12 06:00] LABS: PLATELET COUNT 74 10x3/uL (130-400)
[2016-12-12 06:05] LABS: ALT (SGPT) 288 U/L (10-68); CALC OSMOLALITY 272 mosm/kg (275-300); GLUCOSE 104 mg/dL (74-106); POTASSIUM - SERUM 3.5 mmol/L (3.5-5.1)
--- NOTE | 2016-12-12 06:20 | NUR ---
PIV INITIATED ON LT CHEST. FLUIDS AND ANTIBIOTICS RESUMED. LT SUBCLAVIAN IMPLANTED PORT SITE IS RED BUT NO LONGER TENDER, PT REPORTS NO PAIN TO THE SITE. WILL CONTINUE TO MONITOR.
--- NOTE | 2016-12-12 07:45 | NUR ---
SHIFT ASSESSMENT VIA FLOWSHEET, SEE FOR DETAILS.
--- NOTE | 2016-12-12 08:10 | NUR ---
PT TO SPECIALS VIA BED.
--- NOTE | 2016-12-12 09:05 | NUR ---
PT RETURNED FROM THORACENTESIS, ICU MONITORS CONNECTED. PT'S AT BEDSIDE, UPDATE PROVIDED. PT VOICES NO ADDITIONAL NEEDS AT THIS TIME, CALL LIGHT WITHIN REACH.
[2016-12-12 10:23] LABS: MACROPHAGES BF 5 %; MESOTHELIALS BF 4 %; NEUT - BF 74 %
[2016-12-12 10:31] LABS: PROTEIN - BODY FLUID 2.9 G/DL
--- NOTE | 2016-12-12 11:05 | NUR ---
PT OOB WITH PHYSICAL THERAPY ASSIST.
--- NOTE | 2016-12-12 11:30 | NUR ---
REASSESSMENT VIA FLOWSHEET, SEE FOR DETAILS.
--- NOTE | 2016-12-12 13:55 | NUR ---
SPOKE WITH DR POOLE REGARDING PT RASH ON LEFT CHEST AND ARM. NEW ORDERS RECEIVED.
--- NOTE | 2016-12-12 14:45 | NUR ---
LEFT WORD WITH DR WALLACE OFFICE REGARDING PT'S INFUSAPORT.
--- NOTE | 2016-12-12 14:55 | NUR ---
LEFT UPPER ARM PIV INFILTRATED. D/C'D AND SANDEEP CARRINGTON PAGED TO PLACE NEW LINE.
--- NOTE | 2016-12-12 15:30 | NUR ---
REASSESSMENT VIA FLOWSHEET, SEE FOR DETAILS.
--- NOTE | 2016-12-12 16:25 | NUR ---
PT RETURNED FROM CT. ILANA STATES UNABLE TO COMPLETE SCAN D/T NON FUNCTIONING IV. SANDEEP CARRINGTON NOTIFIED.
--- NOTE | 2016-12-12 17:00 | NUR ---
SPOKE WITH SANDEEP CARRINGTON RN REGARDING PT IV STATUS. 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
--- NOTE | 2016-12-12 17:15 | NUR ---
PAGED DR WALLACE.
--- NOTE | 2016-12-12 19:03 | NUR ---
DR WALLACE HERE TO SEE PT. STATES PT OK TO RECEIVE PRBC FOLLOWING CVL EXCHANGE PLANNED FOR TOMORROW.
--- NOTE | 2016-12-12 19:10 | NUR ---
Recieved patient resting in bed with eyes closed, assessment completed per flowsheet. Patient AO x4, calm and cooperative. Eyes PERRLA @ 4mm with brisk response, sclera is white. S1/S2 noted NSR on telemetry with HR 93, rhythmic and regular. Breathing is even and unlabored on 3L via NC with O2 sat 96%, lung sounds clear bilateral upper and mid with diminished lower. Abdomen is round and soft with bowel sounds active x4, non-tender. Aguirre secured in place, clear yellow urine noted. Full ROM all extremities with trace swelling noted, all pulses weakly palpable with cap refill < 3 sec. R jugular CVL noted, not currently in use and will be replaced 12/13. Patient denies pain or other needs at this time, all VSS and will continue to monitor.
--- NOTE | 2016-12-12 21:00 | NUR ---
All HS meds given without difficulty, patient family at bedside. All questions answered to satisfaction, no further needs at this time. All VSS and will continue to monitor.
--- NOTE | 2016-12-12 23:10 | NUR ---
Reassessment completed per flowsheet, patient resting in bed with eyes closed. Patient AO x4, calm and cooperative. S1/S2 noted NSR on telemetry with HR 96, rhythmic and regular. Breathing is even and unlabored on 3L via NC with O2 sat 97%, lung sounds clear bilateral upper and mid with diminished lower. All pulses weakly palpable with cap refill < 3 sec, skin warm/dry to touch. Denies pain or other needs at this time, all VSS and will continue to monitor.
[2016-12-13] VITALS (25 sets, daily range): BP systolic 82–149; BP diastolic 50–100
--- NOTE | 2016-12-13 01:00 | NUR ---
Patient resting in bed with eyes closed. Aguirre care performed, patient repositioned for comfort. Denies pain or other needs at this time, all VSS and will continue to monitor.
--- NOTE | 2016-12-13 03:10 | NUR ---
Reassessment completed per flowsheet, patient resting in bed with eyes closed. Patient AO x4, calm and cooperative. S1/S2 noted NSR on telemetry with HR 91, rhythmic and regular. Breathing is slightly shallow and unlabored on 3L via NC, lung sounds clear bilateral upper with crackles noted mid and diminished lower. All pulses weakly palpable with cap refill < 3 sec, skin is warm/dry to touch. Patient denies pain or other needs at this time, all VSS and will continue to monitor.
[2016-12-13 04:06] LABS: BASOPHILS 0.1 % (0-2); EOSINOPHILS 0 % (0-7); HEMATOCRIT 28.8 % (36.0-48.0); HEMOGLOBIN 8.7 g/dL (12-16); LYMPHOCYTES 4.3 % (15-50); MCH 25.5 pg (26.0-34.0); MCHC 30.2 g/dL (31.0-37.0); MCV 84.5 fL (80.0-100.0); MONOCYTES 4.6 % (2-11); PLATELET COUNT 66 10x3/uL (130-400); RBC 3.41 10x6/uL (4.00-5.40); RDW 21.5 % (11.5-14.5); WBC 13.6 10x3/uL (4.8-10.8)
[2016-12-13 04:24] LABS: ALBUMIN 2.3 g/dL (3.4-5.0); ALKALINE PHOSPHATASE 147 U/L (46-116); ALT (SGPT) 216 U/L (10-68); CALC OSMOLALITY 267 mosm/kg (275-300); CALCIUM 8.1 mg/dL (8.5-10.1); CARBON DIOXIDE 23.6 mmol/L (21.0-32.0); CHLORIDE - SERUM 101 mmol/L (98-107); CREATININE - SERUM 0.7 mg/dL (0.6-1.3); GLUCOSE 94 mg/dL (74-106); LDH 352 U/L (81-234); PHOSPHOROUS 2.5 mg/dL (2.5-4.9); POTASSIUM - SERUM 3.7 mmol/L (3.5-5.1); PROTEIN - SERUM 6.2 g/dL (6.4-8.2); SODIUM 135 mmol/L (136-145); eGFR NON AFRICAN AMERICAN 88 mL/min (90-120)
[2016-12-13 04:31] LABS: UREA NITROGEN 8 mg/dL (7-18)
--- NOTE | 2016-12-13 05:00 | NUR ---
AM Labs collected without difficulty, patient resting in bed with eyes closed. Denies pain or other needs at this time, all VSS and will continue to monitor.
--- NOTE | 2016-12-13 07:30 | NUR ---
SHIFT ASSESSMENT VIA FLOWSHEET, SEE FOR DETAILS.
--- NOTE | 2016-12-13 08:50 | NUR ---
RIGHT NECK CVL D/C'D BY COLTEN RICKS RN WITH CATH TIP INTACT.
--- NOTE | 2016-12-13 09:10 | NUR ---
PT'S FAMILY AT BEDSIDE, UPDATE PROVIDED. VSS, PT VOICES NO ADDITIONAL NEEDS AT THIS TIME, CALL LIGHT WITHIN REACH.
--- NOTE | 2016-12-13 11:10 | NUR ---
PT TO CT VIA BED.
--- NOTE | 2016-12-13 11:30 | NUR ---
REASSESSMENT VIA FLOWSHEET, SEE FOR DETAILS.
--- NOTE | 2016-12-13 12:15 | NUR ---
LUNCH TRAY PROVIDED, PT POSITIONED FOR COMFORT. VSS, CALL LIGHT WITHIN REACH.
--- NOTE | 2016-12-13 13:10 | NUR ---
PT HERE TO GET PT OOB.
--- NOTE | 2016-12-13 14:15 | NUR ---
INITIATED INFUSION OF ONE UNIT PRBC PER ORDER.
--- NOTE | 2016-12-13 14:30 | NUR ---
NO SIGN OF TRANSFUSION REACTION NOTED AFTER 15 MINUTES.
--- NOTE | 2016-12-13 15:14 | NUR ---
PT BACK TO BED WITH PHYSICAL THERAPY ASSIST.
--- NOTE | 2016-12-13 15:30 | NUR ---
REASSESSMENT VIA FLOWSHEET, SEE FOR DETAILS.
[2016-12-13 16:14] LABS: AFB SPECIMEN PROCESSING Not Indicated (())
--- NOTE | 2016-12-13 19:40 | NUR ---
SHIFT ASSESSMENT COMPLETE AT THIS TIME. SHE IS A&O X4 WITH NO SIGNS OF ACUTE DISTRESS. S1S2 AUDIBLE, NORMAL SINUS RHYTHM. RESP RATE SHALLOW, CLEAR LUNG SOUNDS THROUGHOUT ALL LOBES. ABD IS SOFT AND NON TENDER TO TOUCH, BS ACTIVE X4. RADIAL AND PEDAL PULSES PALP. L ARM/CHEST HAS A REDDENED AREA. SCD'S REMOVED AND SKIN ASSESSED, WNL. R IJ HAS A DRESSING THAT IS CDI. R WRIST PIV INFUSING D5 @ 30 ML/HR. SHE DENIES ANY REQUESTS AT THIS TIME. WILL CONT TO MONITOR.
--- NOTE | 2016-12-13 21:20 | NUR ---
COMPLETE LINEN CHANGE AND PARTIAL BATH GIVEN. SHE HAS A SMALL DARK BROWN/GREEN BM. REPOSITIONED FOR COMFORT. SHE DENIES ANY FURTHER REQUESTS. WILL CONT WITH POC.
--- NOTE | 2016-12-13 23:30 | NUR ---
REASSESSMENT COMPLETE AT THIS TIME. SHE DENIES ANY PAIN AND SHE STATES THAT SHE DOES NOT WANT TO TURN B/C SHE IS COMFORTABLE. S1S2 AUDIBLE, HR 82 BPM NORMAL SINUS RHYTHM. RR SHALLOW BUT EVEN, CLEAR LUNG SOUNDS THROUGHOUT ALL LOBES. PRODUCTIVE COUGH WITH CLEAR SPUTUM. CALL LIGHT IN REACH. BED IN LOWEST POSITION. WILL CONT WITH POC.
[2016-12-14] VITALS (14 sets, daily range): BP systolic 99–127; BP diastolic 59–93
--- NOTE | 2016-12-14 01:30 | NUR ---
NAVAS CARE PROVIDED. PT REQUESTS TO SLEEP ON HER BACK AT THIS TIME. VSS. NO SIGNS OF ACUTE DISTRESS NOTED. WILL CONT WITH POC.
--- NOTE | 2016-12-14 03:30 | NUR ---
REASSESSMENT COMPLETE. NO CHANGES NOTED AT THIS TIME. PT STATES THAT HER NECK IS HURTING. REPOSITIONED FOR COMFORT. SHE STATES THAT SHE IS FEELING BETTER. PRODUCTIVE COUGH PRODUCING CLEAR SPUTUM. NO FURTHER CHANGES AT THIS TIME. WILL CONT WITH POC.
[2016-12-14 04:00] LABS: BASOPHILS 0.1 % (0-2); EOSINOPHILS 0.1 % (0-7); HEMATOCRIT 32.9 % (36.0-48.0); IMMATURE GRANULOCYTES 0.9 % (0-5); LYMPHOCYTES 4.3 % (15-50); MCH 26.1 pg (26.0-34.0); MCHC 30.4 g/dL (31.0-37.0); MCV 85.9 fL (80.0-100.0); MONOCYTES 5.1 % (2-11); NEUTROPHILS 89.5 % (40-80); PLATELET COUNT 66 10x3/uL (130-400); RBC 3.83 10x6/uL (4.00-5.40); RDW 21.4 % (11.5-14.5); WBC 14.8 10x3/uL (4.8-10.8)
[2016-12-14 04:15] LABS: ALBUMIN 2.5 g/dL (3.4-5.0); ALKALINE PHOSPHATASE 147 U/L (46-116); ALT (SGPT) 175 U/L (10-68); BILIRUBIN - TOTAL 0.93 mg/dL (0.2-1.3); CALC OSMOLALITY 270 mosm/kg (275-300); CALCIUM 8.5 mg/dL (8.5-10.1); CARBON DIOXIDE 26.8 mmol/L (21.0-32.0); CHLORIDE - SERUM 102 mmol/L (98-107); CREATININE - SERUM 0.8 mg/dL (0.6-1.3); GLUCOSE 107 mg/dL (74-106); MAGNESIUM - SERUM 2.1 mg/dL (1.8-2.4); PHOSPHOROUS 2.5 mg/dL (2.5-4.9); POTASSIUM - SERUM 3.9 mmol/L (3.5-5.1); PROTEIN - SERUM 6.5 g/dL (6.4-8.2); SODIUM 136 mmol/L (136-145); UREA NITROGEN 9 mg/dL (7-18); eGFR NON AFRICAN AMERICAN 75 mL/min (90-120)
--- NOTE | 2016-12-14 05:00 | NUR ---
PT IS RESTING PEACEFULLY WITH NO SIGNS OF ACUTE DISTRESS NOTED. SHE DENIES ANY REQUESTS AT THIS TIME. CALL LIGHT IN REACH. BED IN LOWEST POSITION. WILL CONT WITH POC.
--- NOTE | 2016-12-14 07:10 | NUR ---
PATIENT SHIFT ASSESSMENT IS COMPLETE. PATIENT DENIES ANY NEEDS AT THIS TIME. CALL LIGHT WITHIN REACH, BED IN LOW POSITION.
--- NOTE | 2016-12-14 09:25 | NUR ---
PATIENT HAS FAMILY AT BEDSIDE. PATIENT IS TALKING AND DENIES ANY NEEDS AT THIS TIME. CALL LIGHT WITHIN REACH, NO CHANGES IN CONDITION.
--- NOTE | 2016-12-14 10:33 | NUR ---
PHYSICAL THERAPY HERE TO ASSIST PATIENT UP TO CHAIR.
--- NOTE | 2016-12-14 10:57 | NUR ---
NUTRITION F/U UP IN CHAIR.PT RESUMED REG DIET & REPORTS GOOD PO INTAKE BREAKFAST. WILL CONTINUE TO PROVIDE DIET, HONOR FOOD PREFERENCES. MONITOR PO INTAKE. RD FOLLOWING
--- NOTE | 2016-12-14 12:47 | EC ---
PATIENT:RENEA SINGLETARY DATE OF SERVICE: 12/04/16 SEX: F MEDICAL RECORD: [id number] DATE OF : [birth year] LOCATION:[facility] AGE OF PATIENT: 71 ADMISSION DATE: 12/04/16 REFERRING PHYSICIAN: INTERPRETING PHYSICIAN: MACKENZIE GODWIN MD ECHOCARDIOGRAM REPORT ECHO CHARGES 4 ECHO COMPLETE CLINICAL DIAGNOSIS: R MCA INFARCT/ ASSESS FOR CLOTS, ELEVATED ST ASSESS RV FUNCTION ECHOCARDIOGRAPHIC MEASUREMENTS (adult normal given) AC root (d.<3.7cm) 2.4 cm LV Septum d (<1.2 cm> 1.3 cm Valve Excursion 1.5 cm LV Septum (systole) 1.5 cm Left Atria (s.<4.0cm> 3.5 cm LVPW d(<1.2cm) 1.6 cm RV (d.<2.3cm) 3.7 cm LVPW (sytole) 2.1 cm LV diastole(<5.6CM) 2.7 cm MV E-F(>70mm/sec) cm LV systole 1.5 cm LVOT Diameter 1.2 cm MV exc.(>10mm) 1.7 cm Est.ejection fraction (50-75%) % Pericardial Effusion N DOPPLER: LVIT cm/sec A 26.0 cm/sec E 93.0 cm/sec LA cm/sec RVSP 50 mmHg LVOT 83 cm/sec AOP1/2T m/s Asc. Ao 181 cm/sec RVOT 71 cm/sec RA cm/sec PA 134 cm/sec AV Gradient Peak 13.11mmHg AV Mean 8.12 mmHg AV Area 1.2 cm MV Gradient Peak 5.85 mmHg MV Mean 2.08 mmHg MV Area cm COMMENTS: Marbleizing Machine Tender: 2 JENNIFER LAROSE It Service Continuity Supervisor: 4 Dr. Godwin TAPE# PACS DATE OF SERVICE: 12/05/2016 PROCEDURE: Transthoracic echocardiogram. FINDINGS: 1. The patient has evidence of moderate concentric left ventricular hypertrophy without wall motions and a hyperdynamic ventricle with an ejection fraction of 80% to 90%. 2. The right ventricle is severely dilated between 4-5 cm. The free wall of the ECHOCARDIOGRAM REPORT [id number] RENEA SINGLETARY right ventricle does not contract and there is markedly reduced function of the right ventricle. 3. The pericardium has some [id number] pericardial effusion. Although rest parameter was not performed, there does not appear to be any collapse in the free wall of the structures of any of the ventricle or atria at any time during the evaluation, so it does not appear that the patient has any evidence of tamponade physiology. 4. The IVC is shown to be severely dilated at 3.8 cm. The IVC does not collapse. 5. The tricuspid valve has moderate tricuspid regurgitation. RVSP appears to be in the 50 to 60 mmHg indicating severe pulmonary hypertension. 6. There is trace to mild mitral regurgitation. 7. The left atrium is normal size, normal function. 8. The right atrium is severely dilated. CONCLUSIONS: The patient has evidence of hypertensive heart disease with what appears to be an acute sudden pressure overload of the right ventricle. The free wall of the right ventricle being hypokinetic in nature, but suggests that or the possibility of right ventricular infarction. It may be reasonable to repeat the echocardiogram to make sure there is no interval increase in the patient's pericardial effusion. TRANSINT:[id number] Voice Confirmation ID: [id number] DOCUMENT ID: [id number] MACKENZIE GODWIN MD at 1247 CC: [id number] DICTATION DATE: 12/05/16 165 SYSTEMS SUPPORT ENGINEER: 12/05/16 6239 ADM IN [place] [id number] [place] [id number]
--- NOTE | 2016-12-14 14:00 | OP ---
PATIENT NAME: RENEA SINGLETARY MEDICAL RECORD: [id number] :49 LOCATION:.[facility] D.2312 ADMISSION DATE:12/04/16 SURGEON: CARLO OGLESBY MD DATE OF OPERATION: 12/12/2016 PREOPERATIVE DIAGNOSES: 1. Cerebrovascular accident 2. Status post cardiac arrest. 3. Breast cancer. POSTOPERATIVE DIAGNOSES: 1. Cerebrovascular accident 2. Status post cardiac arrest. 3. Breast cancer. PROCEDURE: Insertion of right neck triple-lumen central venous catheter. SURGEON: Carlo Oglesby MD. EXPORT ADMINISTRATOR: None. BLOOD LOSS: Minimal. ANESTHESIA: Local. The patient has a very large external jugular vein on the right. It may be that it is compensatory enlarged due to a clotted right IJ. A consent form was signed. The procedure was performed with the presence of an ICU nurse. OPERATIVE COURSE: The patient was positioned in the Trendelenburg position. The right neck was sterilely prepped and draped. Local anesthetic was used to infiltrate the skin and subcutaneous tissues of the right neck. I was unable to percutaneously access the right internal jugular vein in an antegrade fashion. The patient had a very large external jugular vein. This was accessed with an Angiocath. The guidewire passed a short way. A small skin theresa was accomplished. Through the skin theresa, a 16-cm central venous line was advanced. The wire was removed. All lumens flushed easily and aspirated dark, nonpulsatile blood. The central venous line was sutured in place and can be used immediately by the nurses. TRANSINT:[id number] Voice Confirmation ID: [id number] DOCUMENT ID: [id number] CARLO OGLESBY MD at 1400 CC: [id number] DICTATION DATE: 12/12/161814 COURTESY DRIVER: 12/12/162047 ADM IN [facility] [address] [place] [address]
--- NOTE | 2016-12-14 14:06 | NUR ---
PATIENT IS STILL SITTING UP IN CHAIR AND TOLERATING WELL. PATIENT DENIES ANY NEEDS AT THIS TIME. CALL LIGHT WITHIN REACH.
--- NOTE | 2016-12-14 14:32 | NUR ---
PHYSICAL therapy in room to walk patient.
--- NOTE | 2016-12-14 16:15 | NUR ---
REPORT CALLED TO MED SURG SPOKE WITH MARK RAGLAND PATIENT WILL BE GOING TO ROOM 2202.
--- NOTE | 2016-12-14 16:55 | NUR ---
NAVAS DC'D TIP INTACT WITHOUT DRAINAGE NOTED.
--- NOTE | 2016-12-14 17:06 | NUR ---
PATIENT TRANSFERRED TO MED SURG 2202 VIA W/C. PATIENT IS SLIGHTLY WEAK AND REQUIRES ASSIST TO TRANSFER.
--- NOTE | 2016-12-14 17:13 | NUR ---
PATIENT TRANSFERRED FROM W/C TO BEDSIDE CHAIR IN ROOM 2202. PATIENT IS ALERT AND ORIENTED. IV INFUSING D5 AT 30ML/HR WITHOUT REDNESS OR EDEMA NOTED. DINNER GIVEN. CALL LIGHT WITHIN REACH.
--- NOTE | 2016-12-14 17:38 | NUR ---
PT TO ROOM 2202 FROM ICU VIA WHEELCHAIR.PT UP IN CHAIR EATING DINNER WITHOUT DISTRESS.ORIENTATION TO ROOM WITH PT AND FAMILY.CALL LIGHT IN REACH.
[2016-12-15] VITALS: BP 99/64
[2016-12-15 04:00] VITALS: BP 105/71
[2016-12-15 04:59] LABS: BASOPHILS 0.6 % (0-2); EOSINOPHILS 0 % (0-7); HEMATOCRIT 32.3 % (36.0-48.0); IMMATURE GRANULOCYTES 1.2 % (0-5); LYMPHOCYTES 3.8 % (15-50); MCH 26.4 pg (26.0-34.0); MCV 85.2 fL (80.0-100.0); MONOCYTES 5.6 % (2-11); NEUTROPHILS 88.8 % (40-80); PLATELET COUNT 55 10x3/uL (130-400); RBC 3.79 10x6/uL (4.00-5.40); RDW 22.8 % (11.5-14.5); WBC 16.2 10x3/uL (4.8-10.8)
[2016-12-15 06:04] LABS: ALBUMIN 2.5 g/dL (3.4-5.0); ALKALINE PHOSPHATASE 148 U/L (46-116); ALT (SGPT) 136 U/L (10-68); BILIRUBIN - TOTAL 0.87 mg/dL (0.2-1.3); CALC OSMOLALITY 269 mosm/kg (275-300); CALCIUM 8.4 mg/dL (8.5-10.1); CARBON DIOXIDE 22.9 mmol/L (21.0-32.0); CHLORIDE - SERUM 103 mmol/L (98-107); CREATININE - SERUM 0.7 mg/dL (0.6-1.3); GLUCOSE 123 mg/dL (74-106); MAGNESIUM - SERUM 2.1 mg/dL (1.8-2.4); POTASSIUM - SERUM 3.8 mmol/L (3.5-5.1); PROTEIN - SERUM 6.1 g/dL (6.4-8.2); SODIUM 135 mmol/L (136-145); UREA NITROGEN 9 mg/dL (7-18); eGFR NON AFRICAN AMERICAN 88 mL/min (90-120)
--- NOTE | 2016-12-15 07:00 | NUR ---
REPORT RECIEVED ASSUMED CARE. PATIENT IN BED WITH IV INTACT. EYES CLOSED RESTING QUIETLY. CALL LIGHT WITHIN REACH.
[2016-12-15 08:01] VITALS: BP 97/67
--- NOTE | 2016-12-15 10:24 | NUR ---
PATIENT SITTING UP IN CHAIR AT THIS TIME WITH O2 ON. NO COMPLAINTS OR SIGNS OF DISTRESS. FAMILY AT BEDSIDE. CALL LIGHT WITHIN REACH.
--- NOTE | 2016-12-15 12:00 | NUR ---
PATIENT IN CHAIR AT THIS TIME WITH NO PROBLEMS OR COMPLAINTS. IV INTACT. CALL LIGHT WITHIN REACH.
[2016-12-15 12:27] VITALS: BP 92/50
--- NOTE | 2016-12-15 15:00 | NUR ---
PATIENT IN BED WIHT IV INTACT. NO COMPLAINTS. FAMILY AT BEDSIDE. CALL LIGHT WITHIN REACH.
[2016-12-15 15:22] LABS: FUNGUS STAIN Final report (())
[2016-12-15 16:04] VITALS: BP 109/75
--- NOTE | 2016-12-15 17:15 | NUR ---
SPOKE WITH DR. MAGANA ABOUT PATIENT DISCHARGING. STATED SHE COULD GO HOME IF HER O2 IS OK ON RA. SITTING PATIENTS SATS WERE 90-91% ON RA. AMBULATED PATIENT AND SATS UP TO 93-94%.
--- NOTE | 2016-12-15 17:45 | NUR ---
SPOKE WITH NABIL, DR. POOLE, AND DR. MAYORGA FOR DISCHARGE FOR PATIENT. NEW ORDERS RECIEVED AND CARRIED OUT.
[2016-12-15] MEDS ORDERED: CLEOCIN HCL300 MG PO (17:50)
[2016-12-15] MEDS ORDERED: LEVAQUIN500 MG PO (17:50)
[2016-12-15] MEDS ORDERED: ASPIRIN EC81 M1 PO (18:25)
--- NOTE | 2016-12-15 18:37 | NUR ---
PATIENT RECIEVED DISCHARGE INSTRUCTIONS AT THIS TIME. VERBALIZED UNDERSTANDING AND NO QUESTIONS. IV REMOVED WITH CATH TIP INTACT. MEDS CALLED INTO [facility] REQUESTED. SPOKE WITH ISABELA. CLIENT PORTFOLIO MANAGER TOOK PATIENT DOWN TO PRIVATE VEHICLE WITH PERSONAL BELONGINGS VIA .
--- NOTE | 2016-12-18 11:43 | CN ---
PATIENT NAME:RENEA LOPEZ MEDICAL RECORD: [id number] : 49 LOCATION:[facility] ADMIT DATE: 12/04/16 ACCOUNT: [id number] CONSULTING PHYSICIAN: CARMELITA BLAKELY MD REFERRING PHYSICIAN: JERARDO GALLARDO MD DATE OF CONSULTATION: CONSULT REQUESTING PHYSICIAN: Jerardo Gallardo MD REASON FOR CONSULTATION: Questionable pulmonary embolism. HISTORY OF PRESENT ILLNESS: Ms. Lopez is a 70-year-old female. She was admitted with acute mental status changes, found out to have a right MCA-CVA. She was seen by Dr. Cherry today she is EKG changes and elevated cardiac enzyme as well as liver enzymes. The cardiac echo by Dr. Henderson showed dilatation of the right ventricle and presumed diagnosis of PE has been made. Now, the patient is very lethargic. She cannot give a detailed history. REVIEW OF SYSTEMS: As in history of present illness. PAST MEDICAL HISTORY: 1. Coronary artery disease. 2. Hypertension. 3. Hypothyroidism. 4. Recent diagnosis of CA breast. PAST SURGICAL HISTORY: 1. She has Infusaport placement. 2. She has angioplasty. 3. CABG in the past. ALLERGIES: No known drug allergies. PRESENT MEDICATIONS: She is now on heparin drip. Her other medication is reviewed. PERSONAL AND SOCIAL HISTORY: The patient is an ex-smoker. She is a nondrinker. FAMILY HISTORY: Significant for cardiovascular disease and cancer. PHYSICAL EXAMINATION: GENERAL: Now, the patient is lying comfortably. She is not in acute distress. VITAL SIGNS: The blood pressure is 98-114/91, pulse is 71, respirations 16, temperature 97, SPO2 is 98% on 3 liters nasal cannula. HEENT: Conjunctivae are pink. Sclerae nonicteric. NECK: Supple. There is elevated JVD. CHEST: There is no wheeze, no rales. HEART: Rate and rhythm is regular, normal sound, no murmur. ABDOMEN: Soft, bowel sounds present. No hepatosplenomegaly. RECTAL: Deferred. EXTREMITIES: No cyanosis, no clubbing. There is no pedal edema. CENTRAL NERVOUS SYSTEM: The patient is awake. She follows commands. LABORATORY AND DIAGNOSTIC DATA: CT scan of the head, there is subtle area hypoattenuation in the left occipital lobe. There was no chest x-ray on this CONSULT REPORT [id number] RENEA LOPEZ admission: CBC with a WBC 6.1, hemoglobin 8, hematocrit 27.6, and platelet count 115. Chemistry; sodium 137, potassium is 5, BUN is 41, creatinine 2.5, glucose 123, AST is 458, ALT is 308. CK 906. Troponin 33.9, albumin is 3.2. IMPRESSION: 1. Acute hypoxic respiratory failure, possible underlying pulmonary embolism. 2. Right ventricular strain, possible pulmonary embolism. 3. Elevated cardiac enzymes, most likely acute myocardial infarction. 4. Acute renal failure secondary to hypotension. 5. Elevated liver enzymes, possibly secondary to liver congestion. 6. Right cerebrovascular accident. 7. History of breast cancer. RECOMMENDATION: 1. I will check the chest radiograph, check the VQ scan checked, check the lower extremity ultrasound to rule out deep venous thrombosis. 2. Continue the heparin at this point. 3. Supplemental oxygen is required. 4. IV fluid boluses for hypotension. 5. Dr. Henderson is consulted for cardiology. Dr. Stuart for renal failure. Dr. Gallardo, thank you for involving me in the care of Ms. Lopez. Critical care time is 45 minutes. TRANSINT:[id number] Voice Confirmation ID: [id number] DOCUMENT ID: [id number] CARMELITA BLAKELY MD at 1143 CC: JERARDO GALLARDO MD [id number] DICTATION DATE: 12/05/16 1342 HOSPITAL ADMINISTRATOR: 12/05/16 1429 DIS IN 12/15/16 [place] [id number] [place] [address]
[2017-01-08] MEDS ORDERED: SYNTHROID88 MCG PO (13:56)
[2017-01-08] MEDS ORDERED: TRIAMTERENE-HCT1 TA1 PO (13:57)
[2017-01-09 08:17] LABS: FUNGUS MYCOLOGY CULTURE Final report (())
[2017-02-02 11:18] LABS: ACID FAST CULTURE Negative (()); ACID FAST SMEAR Negative (())
== END 2016-12-15 19:02 | disposition home or self-care (01) | DRG 64 ==
LOC: D.ER 15:15 → D.ICU 17:46 → D.M2 17:46 → D.ICU 12-05 11:43 → D.MS 12-14 17:25
PROVIDERS: Emergency Medicine; General Practice; Internal Medicine Cardiovascular Disease; Internal Medicine Medical Oncology; Internal Medicine Nephrology; Internal Medicine Pulmonary Disease; Specialist; ADMIT Family Medicine
PROC: 02HV33Z Insertion of Infusion Device into Superior Vena Cava, Percutaneous Approach (ICD-10-PCS; 2016-12-12)
PROC: 0W993ZZ Drainage of Right Pleural Cavity, Percutaneous Approach (ICD-10-PCS; principal; 2016-12-12 08:00)
DX: I63.511 Cerebral infarction due to unspecified occlusion or stenosis of right middle cerebral artery (principal); K76.7 Hepatorenal syndrome; J96.01 Acute respiratory failure with hypoxia; K72.00 Acute and subacute hepatic failure without coma; I21.3 ST elevation (STEMI) myocardial infarction of unspecified site; N17.0 Acute kidney failure with tubular necrosis; J69.0 Pneumonitis due to inhalation of food and vomit; I30.9 Acute pericarditis, unspecified; K92.2 Gastrointestinal hemorrhage, unspecified; J98.11 Atelectasis; I95.9 Hypotension, unspecified; D64.9 Anemia, unspecified; I25.10 Atherosclerotic heart disease of native coronary artery without angina pectoris; E03.9 Hypothyroidism, unspecified; I11.0 Hypertensive heart disease with heart failure; R40.2363 Coma scale, best motor response, obeys commands, at hospital admission; R40.2143 Coma scale, eyes open, spontaneous, at hospital admission; R40.2243 Coma scale, best verbal response, confused conversation, at hospital admission; E87.6 Hypokalemia; I50.811 Acute right heart failure; I27.20 Pulmonary hypertension, unspecified; I07.1 Rheumatic tricuspid insufficiency; C50.912 Malignant neoplasm of unspecified site of left female breast; Z95.1 Presence of aortocoronary bypass graft; Z86.73 Personal history of transient ischemic attack (TIA), and cerebral infarction without residual deficits; Z95.5 Presence of coronary angioplasty implant and graft; Z87.891 Personal history of nicotine dependence

== ENCOUNTER 2017-01-09 06:02 | Day surgery (SDC) | payer MEDICARE ==
[~2017-01-09 06:02] MED LIST changes: +ASPIRIN EC81 M1 PO; +CLEOCIN HCL300 MG PO; +LEVAQUIN500 MG PO; +SYNTHROID88 MCG PO; +TRIAMTERENE-HCT1 TA1 PO
[2017-01-09 07:08] VITALS: BP 93/67; BMI 28.1
[2017-01-09 08:01] LABS: BASOPHILS 0.3 % (0-2); HEMATOCRIT 40.9 % (36.0-48.0); HEMOGLOBIN 12.5 g/dL (12-16); IMMATURE GRANULOCYTES 0.3 % (0-5); LYMPHOCYTES 22.5 % (15-50); MCH 28.6 pg (26.0-34.0); MCHC 30.6 g/dL (31.0-37.0); MCV 93.6 fL (80.0-100.0); MEAN PLATELET VOLUME 10.7 fL (7.4-10.4); MONOCYTES 7.9 % (2-11); RBC 4.37 10x6/uL (4.00-5.40); RDW 27.1 % (11.5-14.5); WBC 3.6 10x3/uL (4.8-10.8)
[2017-01-09 08:02] LABS: PLATELET COUNT 111 10x3/uL (130-400)
[2017-01-09 08:12] LABS: APTT 21.9 SECONDS (22.8-39.4); INR 1.07 (0.85-1.17); PROTIME 13.8 SECONDS (11.6-15.0)
[2017-01-09 08:26] LABS: CALCIUM 9.3 mg/dL (8.5-10.1); CARBON DIOXIDE 26.6 mmol/L (21.0-32.0); POTASSIUM - SERUM 3.6 mmol/L (3.5-5.1)
--- NOTE | 2017-01-09 09:30 | NUR ---
0930 RETURNED FROM XRAY, AWAITING SURGERY. IV PATENT AT 50/CC/HR. CALL LIGHT AT BEDSIDE.
[2017-01-09] MEDS ORDERED: HYDROCODONE-APA1 TAB PO (12:52)
--- NOTE | 2017-01-16 14:51 | OP ---
PATIENT NAME: RENEA SINGLETARY MEDICAL RECORD: [id number] :49 LOCATION:D.[facility] ADMISSION DATE: SURGEON: KIT SPRAGUE MD DATE OF OPERATION: 01/09/2017 PREOPERATIVE DIAGNOSES: 1. Right breast cancer. 2. Coronary artery disease. 3. Hyperthyroidism. POSTOPERATIVE DIAGNOSES: 1. Right breast cancer. 2. Coronary artery disease. 3. Hyperthyroidism. PROCEDURE: Right lumpectomy with right axillary sentinel lymph node biopsy. SURGEON: Kit Sprague MD REPORT OF PROCEDURE: The patient's right chest and axilla were prepped and draped in sterile fashion. In total during this case 60 mL of 1% lidocaine with epinephrine and plain were used to numb the surrounding tissues. The tumor was invading the skin on the right upper outer quadrant of the breast. I made a large ovoid incision around this area and removed the section of skin along with the subcutaneous fatty tissue including the breast tissue. We got all the way down to the pectoral muscle. Once the lumpectomy was performed, the specimen was marked appropriately and sent off for permanent. We were able to access the patient's axilla through this incision, the Neoprobe was used to find the radioactive isotope. We were able to find the sentinel lymph node and this was removed with blunt dissection. The sentinel lymph node had a reading of 750. No other lymph nodes were found in the area which required removal. We then irrigated out the wound with sterile water. The wound was inspected and care was taken to make sure there was no sign of any active bleeding. The subcutaneous tissues were reapproximated with interrupted 3-0 Vicryl and the skin was closed with running subcutaneous 5-0 Monocryl. COMPLICATIONS: None. CONDITION: Stable. ANESTHESIA: Local. BLOOD LOSS: 30 mL. TRANSINT:[id number] Voice Confirmation ID: [id number] DOCUMENT ID: [id number] KIT SPRAGUE MD at 1451 CC: ANA MARIA WALLACE MD and SUMIT MAGANA MD [id number] DICTATION DATE: 01/09/17 1255 POULTRY SEXER: 01/09/[address] [facility] 01/09/17 [place] [address]
== END 2017-01-09 13:58 | disposition home or self-care (01) ==
LOC: D.OPS 06:02 → D.PAN 08:30 → D.OPS 08:30
PROVIDERS: Anesthesiology; Surgery
DX: C50.411 Malignant neoplasm of upper-outer quadrant of right female breast (principal); Z17.0 Estrogen receptor positive status [ER+]; D05.11 Intraductal carcinoma in situ of right breast; R59.0 Localized enlarged lymph nodes; I25.10 Atherosclerotic heart disease of native coronary artery without angina pectoris; E05.90 Thyrotoxicosis, unspecified without thyrotoxic crisis or storm; Z01.812 Encounter for preprocedural laboratory examination

== ENCOUNTER → 2017-01-22 08:50 | Outpatient (CLI) | payer MEDICARE ==
[2017-01-09 07:08] VITALS: BMI 28.1
[~2017-01-22 08:50] MED LIST changes: +HYDROCODONE-APA1 TAB PO
--- NOTE | 2017-02-13 08:55 | EC ---
PATIENT:RENEA SINGLETARY DATE OF SERVICE: 01/22/17 SEX: F MEDICAL RECORD: [id number] DATE OF : 49 LOCATION:[facility] AGE OF PATIENT: 71 ADMISSION DATE: 01/22/17 REFERRING PHYSICIAN: INTERPRETING PHYSICIAN: MACKENZIE GODWIN MD ECHOCARDIOGRAM REPORT ECHO CHARGES 4 ECHO COMPLETE CLINICAL DIAGNOSIS: BREAST CANCER/ POST CHEMOTHERAPY ECHOCARDIOGRAPHIC MEASUREMENTS (adult normal given) AC root (d.<3.7cm) 2.6 cm LV Septum d (<1.2 cm> 0.8 cm Valve Excursion 1.3 cm LV Septum (systole) 1.4 cm Left Atria (s.<4.0cm> 3.3 cm LVPW d(<1.2cm) 1.0 cm RV (d.<2.3cm) 3.0 cm LVPW (sytole) 1.7 cm LV diastole(<5.6CM) 4.3 cm MV E-F(>70mm/sec) cm LV systole 2.5 cm LVOT Diameter 1.5 cm MV exc.(>10mm) cm Est.ejection fraction (50-75%) % Pericardial Effusion Y DOPPLER: LVIT cm/sec A 114 cm/sec E 80.0 cm/sec LA cm/sec RVSP 34.0 mmHg LVOT 97.0 cm/sec AOP1/2T m/s Asc. Ao 161 cm/sec RVOT 56.0 cm/sec RA cm/sec PA 65.0 cm/sec AV Gradient Peak 10.4 mmHg AV Mean 5.0 mmHg AV Area 1.0 cm MV Gradient Peak 4.1 mmHg MV Mean 1.5 mmHg MV Area cm COMMENTS: Personal Protection Specialist: Jens SAHNIOE Medical Assistant Cardiology: 4 Dr. Godwin TAPE# PACS DATE OF SERVICE: 01/22/2017 TRANSTHORACIC ECHOCARDIOGRAM FINDINGS: 1. The left ventricle is normal size. The inflow characteristics into the left ventricle are consistent with diastolic dysfunction or possibly elevated left ventricular end-diastolic pressures. The endocardium was difficult to visualize and there was asynchronous wall motion as well as a D-shaped septum consistent with possible elevated right ventricular pressures. The overall ejection ECHOCARDIOGRAM REPORT [id number] RENEA SINGLETARY fraction is mildly to moderately reduced with ejection fraction of 35% to 40%. 2. The mitral valve appears to be structurally normal. There is mild mitral regurgitation. 3. The tricuspid valve is not well visualized; however, there appears to be severe tricuspid regurgitation. The estimated right ventricular systolic pressure is elevated at 40 to 45 mmHg. 4. The left atrium is normal size, normal function. 5. The right atrium is severely dilated. 6. The right ventricle is severely dilated. 7. Aortic valve is not well visualized, but Doppler evaluation appears to put in the normal functioning range. 8. Pericardium appears to have a [id number] pericardial effusion. There is no evidence of tamponade physiology. 9. The IVC is dilated. CONCLUSIONS: The patient has evidence of decreased left ventricular function, elevated right-sided chamber sizes with severe tricuspid regurgitation and evidence of pulmonary hypertension. TRANSINT:[id number] Voice Confirmation ID: [id number] DOCUMENT ID: [id number] MACKENZIE GODWIN MD at 0855 CC: [id number] DICTATION DATE: 01/23/172007 MEDICAL RECORDS SUPERVISOR: 01/23/17 2221 DEP CLI 01/22/17 [id number] [place] [address]
== END | disposition home or self-care (01) ==
LOC: D.ECHO 08:50
DX: C50.411 Malignant neoplasm of upper-outer quadrant of right female breast (principal)

== ENCOUNTER → 2017-02-20 10:21 | Outpatient (CLI) | payer MEDICARE | END | disposition home or self-care (01) | LOC: D.US 10:21 | DX: C50.411 Malignant neoplasm of upper-outer quadrant of right female breast (principal) ==

== ENCOUNTER → 2017-12-10 09:07 | Outpatient (CLI) | payer MEDICARE ==
--- NOTE | ~2017-12-10 | EC ---
PATIENT:RENEA SINGLETARY DATE OF SERVICE: 12/10/17 SEX: F MEDICAL RECORD: [id number] DATE OF : 49 [facility] AGE OF PATIENT: 72 ADMISSION DATE: 12/10/17 REFERRING PHYSICIAN: INTERPRETING PHYSICIAN: LALITHA DAVIS MD ECHOCARDIOGRAM REPORT ECHO CHARGES 4 ECHO COMPLETE Date: 12/10/17 CLINICAL DIAGNOSIS: BREAST CANCER/CYTOTOXIC CHEMOTHERAPY ECHOCARDIOGRAPHIC MEASUREMENTS (adult normal given) AC root (d.<3.7cm) 2.7 cm LV Septum d (<1.2 cm> 1.1 cm Valve Excursion 1.1 cm LV Septum (systole) 1.7 cm Left Atria (s.<4.0cm> 4.1 cm LVPW d(<1.2cm) 1.2 cm RV (d.<2.3cm) 3.6 cm LVPW (sytole) 1.8 cm LV diastole(<5.6CM) 4.3 cm MV E-F(>70mm/sec) cm LV systole 2.3 cm LVOT Diameter 1.7 cm MV exc.(>10mm) cm Est.ejection fraction (50-75%) % DOPPLER: LVIT cm/sec A 40.0 cm/sec E 90.0 cm/sec LA cm/sec RVSP 41.0 mmHg LVOT 65.0 cm/sec AOP1/2T m/s Asc. Ao 160 cm/sec RVOT 68.0 cm/sec RA cm/sec PA 64.0 cm/sec AV Gradient Peak 10.2 mmHg AV Mean 5.2 mmHg AV Area 1.0 cm MV Gradient Peak 4.0 mmHg MV Mean 1.4 mmHg MV Area cm COMMENTS: Inventory Technician: Jens SAHNIOE Mechanical Energy Engineer: 1 Dr. Davis TAPE# PACS Pericardial Effusion Y DATE OF SERVICE: 12/10/2017 PROCEDURE: Echocardiogram. FINDINGS: 1. Left ventricular chamber size is mildly dilated. Left ventricular systolic function is markedly reduced, overall ejection fraction 25% to 30%. 2. Left atrium is enlarged at 4.1 cm. Right atrium and right ventricle chamber sizes are as well mildly dilated. 3. Valvular structures have normal structure and motion. ECHOCARDIOGRAM REPORT [id number] RENEA SINGLETARY 4. Doppler interrogation reveals moderate to severe mitral regurgitation, severe tricuspid regurgitation, no other valvular insufficiency or stenosis. Pulmonary systolic pressure is estimated 41 mmHg. 5. No evidence of pericardial effusion or left ventricular thrombus. TRANSINT:[id number] Voice Confirmation ID: [id number] DOCUMENT ID: [id number] LALITHA DAVIS MD at 0924 CC: [id number] DICTATION DATE: 12/10/17 1209 CERTIFIED ANESTHESIOLOGIST ASSISTANT: 12/10/17 1304 DEP CLI 12/10/17 [id number] [place] [id number]
== END | disposition home or self-care (01) ==
LOC: D.ECHO 12-07 10:00
DX: C50.411 Malignant neoplasm of upper-outer quadrant of right female breast (principal)

== ENCOUNTER 2019-10-06 19:00 | Outpatient (CLI) | payer MEDICARE | END 2019-10-06 23:59 | disposition home or self-care (01) | LOC: D.MAMMO 19:00 | PROVIDERS: ATTEND Internal Medicine Medical Oncology | DX: Z12.31 Encounter for screening mammogram for malignant neoplasm of breast (principal) ==

== ENCOUNTER 2020-05-26 10:50 | Inpatient (IN) | payer MEDICARE ==
[~2020-05-26] VITALS: Ht 167.6 cm; Wt 68.9 kg
[2020-05-26] VITALS (11 sets, daily range): BP systolic 79–110; BP diastolic 46–87; BMI 23.7
--- NOTE | 2020-05-26 11:00 | NUR ---
ARRIVED WITH C/O AMS AND DIFFICULTY WALKING. HX OF CVA IN 2017;
--- NOTE | 2020-05-26 11:05 | NUR ---
IV STARTED IN INFUSAPORT LEFT CHEST. TEMP 100.6 F/C PLACED (CRITICORE) O2 AT 2 B/P 89/44 120 A FIB.
[2020-05-26] MEDS ORDERED: ELIQUIS5 MG PO (11:31)
[2020-05-26] MEDS ORDERED: COREG 3.1253.125 MG PO (11:31)
[2020-05-26] MEDS ORDERED: FUROSEMIDE20 MG PO (11:31)
[2020-05-26] MEDS ORDERED: FEMARA2.5 MG PO (11:32)
[2020-05-26] MEDS ORDERED: PROTONIX40 MG PO (11:32)
[2020-05-26] MEDS ORDERED: SYNTHROID125 MCG PO (11:32)
[2020-05-26] MEDS ORDERED: CARDIZEM60 MG PO (11:33)
[2020-05-26 11:48] LABS: CALC OSMOLALITY 279 mosm/kg (275-300); CALCIUM 8.3 mg/dL (8.5-10.1); CARBON DIOXIDE 27.5 mmol/L (21.0-32.0); CHLORIDE - SERUM 103 mmol/L (98-107); CREATININE - SERUM 1.3 mg/dL (0.6-1.3); GLUCOSE 108 mg/dL (74-106); POTASSIUM - SERUM 3.2 mmol/L (3.5-5.1); SODIUM 139 mmol/L (136-145); UREA NITROGEN 16 mg/dL (7-18); eGFR NON AFRICAN AMERICAN 43 mL/min (90-120)
[2020-05-26 12:03] LABS: BASOPHILS 0.3 % (0-2); EOSINOPHILS 0.3 % (0-7); HEMATOCRIT 21.5 % (36.0-48.0); LYMPHOCYTE ABS# 0.51 10x3/uL (1.18-3.74); LYMPHOCYTES 13.1 % (15-50); MCHC 27.9 g/dL (31.0-37.0); MCV 70.5 fL (80.0-100.0); MONOCYTES 9.8 % (2-11); NEUTROPHIL ABS# 2.98 10x3/uL (1.56-6.13); NEUTROPHILS 76.5 % (40-80); PLATELET COUNT 127 10x3/uL (130-400); RBC 3.05 10x6/uL (4.00-5.40); RDW 19.2 % (11.5-14.5); WBC 3.9 10x3/uL (4.8-10.8)
[2020-05-26 12:09] LABS: MCH 19.7 pg (26.0-34.0)
[2020-05-26 12:10] LABS: ALBUMIN 2.7 g/dL (3.4-5.0); ALKALINE PHOSPHATASE 98 U/L (30-120); ALT (SGPT) 6 U/L (10-68); BILIRUBIN - TOTAL 1.18 mg/dL (0.2-1.3); CKMB 0.1 U/L (0.0-3.6); CREATINE KINASE 102 UL (21-215); MAGNESIUM - SERUM 1.8 mg/dL (1.8-2.4); PROTEIN - SERUM 6.7 g/dL (6.4-8.2)
[2020-05-26 12:11] LABS: THYROID STIMULATING HORMONE 0.01 uIU/mL (0.36-3.74); TROPONIN-I 0.085 ng/mL (0.000-0.060)
[2020-05-26 12:15] LABS: APTT 43.5 SECONDS (22.8-39.4); INR 2.03 (0.85-1.17); PROTIME 21.3 SECONDS (11.6-15.0)
--- NOTE | 2020-05-26 14:20 | NUR ---
REPORT CALLED TO COEL FLORES IN ICU
--- NOTE | 2020-05-26 15:00 | NUR ---
RECEIVED PT TO ICU 5 VIA STRECTHER FROM ER, PT ALERT AND FOLLOWS COMMANDS, DENIES PAIN AT THIS TIME, CALL LIGHT IN REACH, WILL MONITOR
--- NOTE | 2020-05-26 15:25 | NUR ---
DR KWAN NOTIFIED OF CONSULT
--- NOTE | 2020-05-26 16:38 | NUR ---
SPOKE TO DR. OTT ABOUT CONSULT
--- NOTE | 2020-05-26 17:15 | NUR ---
SECOND UNIT OF BLOOD STARTED AT THIS TIME
[2020-05-26 18:25] LABS: CKMB 0.7 U/L (0.0-3.6); CREATINE KINASE 176 UL (21-215)
[2020-05-26 18:28] LABS: TROPONIN-I 0.084 ng/mL (0.000-0.060)
[2020-05-26 19:00] LABS: ALBUMIN 2.6 g/dL (3.4-5.0); ANION GAP 9.6 mmol/L (8-16); BILIRUBIN - TOTAL 1.14 mg/dL (0.2-1.3); CALCIUM 8.4 mg/dL (8.5-10.1); CARBON DIOXIDE 27.5 mmol/L (21.0-32.0); CREATININE - SERUM 1.1 mg/dL (0.6-1.3); POTASSIUM - SERUM 3.1 mmol/L (3.5-5.1); PROTEIN - SERUM 6.3 g/dL (6.4-8.2)
--- NOTE | 2020-05-26 19:00 | NUR ---
BEDSIDE REPORT COMPLETED WITH OFF GOING NURSE. PT IS RESTING IN BED WATCHING TV AT THIS TIME. NO NEEDS VOICED. UNIT OF BLOOD INFUSING AT THIS TIME. NO S/S OF DISTRESS NOTED. WILL CONTINUE TO MONITOR.
[2020-05-26 23:34] LABS: BASOPHILS 0.7 % (0-2); EOSINOPHILS 3.9 % (0-7); HEMATOCRIT 24.8 % (36.0-48.0); IMMATURE GRANULOCYTES 0.4 % (0-5); LYMPHOCYTE ABS# 0.41 10x3/uL (1.18-3.74); LYMPHOCYTES 14.5 % (15-50); MONOCYTES 13.1 % (2-11); NEUTROPHIL ABS# 1.91 10x3/uL (1.56-6.13); NEUTROPHILS 67.4 % (40-80); RBC 3.28 10x6/uL (4.00-5.40); RDW 19.9 % (11.5-14.5)
[2020-05-26 23:41] LABS: MCV 75.6 fL (80.0-100.0); PLATELET COUNT 94 10x3/uL (130-400); WBC 2.8 10x3/uL (4.8-10.8)
[2020-05-26 23:42] LABS: HEMOGLOBIN 7.2 g/dL (12-16)
[2020-05-26 23:53] LABS: CREATINE KINASE 192 UL (21-215)
[2020-05-26 23:57] LABS: TROPONIN-I 0.066 ng/mL (0.000-0.060)
[2020-05-27] VITALS (22 sets, daily range): BP systolic 77–139; BP diastolic 52–88; Ht 167.6 cm; Wt 68.9 kg
[2020-05-27 07:13] LABS: ALBUMIN 2.4 g/dL (3.4-5.0); ALKALINE PHOSPHATASE 86 U/L (30-120); ALT (SGPT) 13 U/L (10-68); BILIRUBIN - TOTAL 1.46 mg/dL (0.2-1.3); CALC OSMOLALITY 276 mosm/kg (275-300); CALCIUM 8.1 mg/dL (8.5-10.1); CARBON DIOXIDE 29.1 mmol/L (21.0-32.0); CHLORIDE - SERUM 105 mmol/L (98-107); CKMB 0.8 U/L (0.0-3.6); CREATINE KINASE 143 UL (21-215); GLUCOSE 85 mg/dL (74-106); MAGNESIUM - SERUM 1.8 mg/dL (1.8-2.4); POTASSIUM - SERUM 3.3 mmol/L (3.5-5.1); PROTEIN - SERUM 6.1 g/dL (6.4-8.2); SODIUM 139 mmol/L (136-145); TROPONIN-I 0.045 ng/mL (0.000-0.060); UREA NITROGEN 13 mg/dL (7-18); eGFR NON AFRICAN AMERICAN 58 mL/min (90-120)
[2020-05-27 07:47] LABS: BASOPHILS 0.3 % (0-2); EOSINOPHILS 6.3 % (0-7); IMMATURE GRANULOCYTES 0.3 % (0-5); MCH 22.8 pg (26.0-34.0); MCHC 29.5 g/dL (31.0-37.0); MCV 77.2 fL (80.0-100.0); MONOCYTES 8.3 % (2-11); NEUTROPHIL ABS# 2.25 10x3/uL (1.56-6.13); NEUTROPHILS 74.8 % (40-80); PLATELET COUNT 92 10x3/uL (130-400); RDW 19.8 % (11.5-14.5)
[2020-05-27 07:55] LABS: HEMATOCRIT 30.8 % (36.0-48.0); HEMOGLOBIN 9.1 g/dL (12-16); RBC 3.99 10x6/uL (4.00-5.40)
[2020-05-27 08:27] LABS: LDH 168 U/L (81-234)
[2020-05-27 08:31] LABS: INR 1.55 (0.85-1.17); PROTIME 17.2 SECONDS (11.6-15.0)
[2020-05-27 14:08] LABS: ALBUMIN 2.5 g/dL (3.4-5.0); BILIRUBIN - TOTAL 1.4 mg/dL (0.2-1.3); CALCIUM 8.1 mg/dL (8.5-10.1); CARBON DIOXIDE 25.7 mmol/L (21.0-32.0); PROTEIN - SERUM 5.8 g/dL (6.4-8.2)
[2020-05-27 14:11] LABS: ANION GAP 14.4 mmol/L (8-16); POTASSIUM - SERUM 4.1 mmol/L (3.5-5.1)
--- NOTE | 2020-05-27 19:00 | NUR ---
BEDSIDE REPORT COMPLETED WITH OFF GOING NURSE. CONSENTS SIGNED FOR PROCEDURE IN AM. SHIFT ASSESSMENT COMPLETED, SEE FLOWSHEET FOR DETAILS. NO S/S OF DISTRESS NOTED. WILL CONTINUE TO MONITOR.
[2020-05-28] VITALS (13 sets, daily range): BP systolic 89–143; BP diastolic 56–88
[2020-05-28 04:48] LABS: BASOPHILS 0.3 % (0-2); EOSINOPHILS 6.3 % (0-7); HEMATOCRIT 33.5 % (36.0-48.0); IMMATURE GRANULOCYTES 0.3 % (0-5); LYMPHOCYTE ABS# 0.52 10x3/uL (1.18-3.74); LYMPHOCYTES 15.6 % (15-50); MCH 23.4 pg (26.0-34.0); MCHC 29.9 g/dL (31.0-37.0); MCV 78.3 fL (80.0-100.0); MONOCYTES 12.9 % (2-11); NEUTROPHIL ABS# 2.16 10x3/uL (1.56-6.13); NEUTROPHILS 64.6 % (40-80); PLATELET COUNT 90 10x3/uL (130-400); RBC 4.28 10x6/uL (4.00-5.40); RDW 19.6 % (11.5-14.5); RETIC 0.93 % (0.45-2.28); WBC 3.3 10x3/uL (4.8-10.8)
[2020-05-28 04:49] LABS: PLATELET ESTIMATE DECREASED
[2020-05-28 05:23] LABS: % SATURATION 11 % (15-55); IRON 31 ug/dl (35-150); TOTAL IRON BIND CAPACITY 266 ug/dl (260-445); UNSAT IRON BIND CAPACITY 235 ug/dl (150-375)
[2020-05-28 06:15] LABS: ALBUMIN 2.2 g/dL (3.4-5.0); ANION GAP 13.2 mmol/L (8-16); BILIRUBIN - TOTAL 1.36 mg/dL (0.2-1.3); CALCIUM 8.1 mg/dL (8.5-10.1); CARBON DIOXIDE 26.3 mmol/L (21.0-32.0); MAGNESIUM - SERUM 1.8 mg/dL (1.8-2.4); POTASSIUM - SERUM 3.5 mmol/L (3.5-5.1); PROTEIN - SERUM 5.7 g/dL (6.4-8.2)
--- NOTE | 2020-05-28 07:15 | NUR ---
REPORT RECEIVED. ASSESSMENT COMPLETE PER FLOW SHEET. VSS. PT RESTING COMFORTABLY
--- NOTE | 2020-05-28 10:46 | NUR ---
DR DELATORRE AT BEDSIDE. EGD AD.
--- NOTE | 2020-05-28 12:18 | NUR ---
Nutrition Reassessment/Follow-up: From ICU. S/p EGD this AM. Diet: Cardiac PO intake: 60% of lunch yesterday; no other PO intake recorded Wt: 152.1# (05/28); 147# (05/26) Labs noted: Ca 8.1, Alb 2.2 Meds noted: Florajen, Protonix, Humulin, electrolyte protocol Est needs: 9885-5468 kcal/day (25-30 kcal/kg) 55-70 g protein/day (0.8-1 g/kg) 1218-4683 mL H2O/day (1 mL/kcal) or per MD -Encourage PO intake and honor food preferences within diet restrictions. -Monitor wt. -RD will follow up within 3-4 days.
[2020-05-28 14:10] LABS: CEA 13.3 ng/mL (0.0-4.7)
[2020-05-29 01:53] LABS: BILIRUBIN NEGATIVE (NEGATIVE); KETONE NEGATIVE (NEGATIVE); NITRITE NEGATIVE (NEGATIVE); UROBILINOGEN NORMAL mg/dL (< 2)
--- NOTE | 2020-05-29 03:00 | NUR ---
I have reviewed this patient and I concur with the Shift Assessment completed by the Licensed Practical Nurse today this shift.
[2020-05-29 04:00] VITALS: BP 139/84
[2020-05-29 05:39] LABS: BASOPHILS 0.6 % (0-2); EOSINOPHILS 4.8 % (0-7); HEMATOCRIT 33.6 % (36.0-48.0); HEMOGLOBIN 10.2 g/dL (12-16); LYMPHOCYTE ABS# 0.58 10x3/uL (1.18-3.74); LYMPHOCYTES 17.5 % (15-50); MCH 23.6 pg (26.0-34.0); MCHC 30.4 g/dL (31.0-37.0); MCV 77.6 fL (80.0-100.0); MONOCYTES 11.8 % (2-11); NEUTROPHIL ABS# 2.16 10x3/uL (1.56-6.13); NEUTROPHILS 65.3 % (40-80); PLATELET COUNT 88 10x3/uL (130-400); RBC 4.33 10x6/uL (4.00-5.40); RDW 19.9 % (11.5-14.5); WBC 3.3 10x3/uL (4.8-10.8)
[2020-05-29 06:15] LABS: ALBUMIN 2.2 g/dL (3.4-5.0); ANION GAP 10.8 mmol/L (8-16); BILIRUBIN - TOTAL 1.37 mg/dL (0.2-1.3); CREATININE - SERUM 0.9 mg/dL (0.6-1.3); MAGNESIUM - SERUM 1.9 mg/dL (1.8-2.4); PROTEIN - SERUM 5.8 g/dL (6.4-8.2)
[2020-05-29 06:20] LABS: POTASSIUM - SERUM 2.8 mmol/L (3.5-5.1)
--- NOTE | 2020-05-29 07:15 | NUR ---
RESTING IN BED WITH EYES CLOSED, EASILY AROUSED TO SPEECH,ALERT AND ORIENTED. LEFT SIDED PORT PRESENT CURRENTLY SL. NO CURRENT S/S OF DISTRESS, DENIES CURRENT NEEDS, WILL CONT TO MONITOR.
[2020-05-29 08:36] VITALS: BP 126/78
[2020-05-29 12:39] VITALS: BP 129/75
--- NOTE | 2020-05-29 14:04 | NUR ---
PT UP, GETTING IN SHOWER. DENIES ANY NEEDS OR HELP AT THIS TIME. COVERED PORT AND TOOK STUDENT SERVICES ADVISOR OFF.
--- NOTE | 2020-05-29 15:14 | NUR ---
BACK IN BED FROM SHOWER, TELEMETRY RECONNECTED. IV RECONNECTED, HUNG IV ABX, TOLERATING WELL. RESTING COMFORTABLY IN BED. DENIES ANY NEEDS AT THIS TIME. WILL CONTINUE POC.
--- NOTE | 2020-05-29 16:18 | NUR ---
ADMINISTERED MEDICATION, NO DIFFICULTIES. NO INSULIN PER SLDIDING SCALE FOR SUGAR OF 107. RESTING UP RIGHT IN BED, DENIES FURTHER NEEDS. WILL CONTINUE POC.
[2020-05-29 16:51] VITALS: BP 106/67
--- NOTE | 2020-05-29 19:17 | NUR ---
PATIENT RESTING IN BED WITH NO S/S OF DISTRESS. PATIENT DENIES NEEDS AT THIS TIME. BED IN LOWEST POSITION AND CALL LIGHT IN REACH. ENCOURAGED PATIENT TO CALL WITH NEEDS.
[2020-05-29 20:15] VITALS: BP 120/82
[2020-05-30 00:46] VITALS: BP 130/68
[2020-05-30 04:00] VITALS: BP 139/72
[2020-05-30 05:31] LABS: BASOPHILS 1.2 % (0-2); EOSINOPHILS 6.5 % (0-7); HEMATOCRIT 34.5 % (36.0-48.0); IMMATURE GRANULOCYTES 0.3 % (0-5); LYMPHOCYTES 24.8 % (15-50); MCV 79.5 fL (80.0-100.0); MONOCYTES 9.3 % (2-11); NEUTROPHIL ABS# 1.87 10x3/uL (1.56-6.13); NEUTROPHILS 57.9 % (40-80); PLATELET COUNT 86 10x3/uL (130-400); RBC 4.34 10x6/uL (4.00-5.40); RDW 20.6 % (11.5-14.5); WBC 3.2 10x3/uL (4.8-10.8)
[2020-05-30 05:45] LABS: ALBUMIN 2.2 g/dL (3.4-5.0); ANION GAP 10.1 mmol/L (8-16); BILIRUBIN - TOTAL 0.92 mg/dL (0.2-1.3); CALCIUM 8.3 mg/dL (8.5-10.1); CARBON DIOXIDE 26.6 mmol/L (21.0-32.0); MAGNESIUM - SERUM 2.1 mg/dL (1.8-2.4); POTASSIUM - SERUM 3.7 mmol/L (3.5-5.1); PROTEIN - SERUM 5.7 g/dL (6.4-8.2)
[2020-05-30 05:47] LABS: PLATELET ESTIMATE DECREASED; PLATELET MORPHOLOGY GIANT PLTS PRESENT
--- NOTE | 2020-05-30 08:02 | NUR ---
AWAKE AND ALERT. ORIENTED X3. NO C/O AT THIS TIME. LUNGS ARE CLEAR BILATERALLY, NO COUGH NOTED. SLIGHTLY DIMINISHED IN LOWER LOBES. SKIN IS INTACT WITHOUT REDNESS. LEFT PORT PATENT WITHOUT REDNESS AT INSERTION SITE. DENIES NEEDS.
--- NOTE | 2020-05-30 08:30 | NUR ---
ATE ALMOST ALL OF BREAKFAST. TOOK AM MEDS WITHOUT DIFFICULTY.
[2020-05-30 09:19] VITALS: BP 156/93
--- NOTE | 2020-05-30 12:30 | NUR ---
ATE MOST OF LUNCH TRAY. DENIES NEEDS.
[2020-05-30 13:35] VITALS: BP 100/73
--- NOTE | 2020-05-30 14:30 | NUR ---
RESTING QUIETLY IN ROOM. DENIES NEEDS.
[2020-05-30 17:56] VITALS: BP 99/50
--- NOTE | 2020-05-30 18:58 | NUR ---
ATE MOST OF SUPPER. DENIES NEEDS. UP TO BR PER SELF. NO CHANGES NOTED.
[2020-05-30 20:00] VITALS: BP 132/53
--- NOTE | 2020-05-30 21:26 | NUR ---
CONTINUES IV VANC, EDUCATION PROVIDED ON USE OF HEART MONITOR, NEW CARDIAC MEDICATIONS. BS WNL.
[2020-05-31 04:00] VITALS: BP 128/64
--- NOTE | 2020-05-31 07:45 | NUR ---
PT LAYING ON BACK. ALERT AND ORIENTED. NO NEEDS AT THIS TIME. WCTM
[2020-05-31 08:17] VITALS: BP 162/75
--- NOTE | 2020-05-31 10:42 | EC ---
PATIENT:RENEA SINGLETARY DATE OF SERVICE: 05/26/20 SEX: F MEDICAL RECORD: [id number] DATE OF : 49 LOCATION:[facility] AGE OF PATIENT: 74 ADMISSION DATE: 05/26/20 REFERRING PHYSICIAN: INTERPRETING PHYSICIAN: ABIDA OTT MD ECHOCARDIOGRAM REPORT ECHO CHARGES 4 ECHO COMPLETE Date: 05/27/20 CLINICAL DIAGNOSIS: TYPE 2 ECHOCARDIOGRAPHIC MEASUREMENTS (adult normal given) AC root (d.<3.7cm) 2.4 cm LV Septum d (<1.2 cm> 1.0 cm Valve Excursion 1.2 cm LV Septum (systole) 1.1 cm Left Atria (s.<4.0cm> 3.7 cm LVPW d(<1.2cm) 0.7 cm RV (d.<2.3cm) 2.8 cm LVPW (sytole) 1.3 cm LV diastole(<5.6CM) 4.3 cm MV E-F(>70mm/sec) cm LV systole 3.3 cm LVOT Diameter 1.7 cm MV exc.(>10mm) 1.5 cm Est.ejection fraction (50-75%) % DOPPLER: LVIT cm/sec A 65 cm/sec E 93 cm/sec LA cm/sec RVSP 39 mmHg LVOT 79 cm/sec AOP1/2T m/s Asc. Ao 157 cm/sec RVOT 52 cm/sec RA cm/sec PA 75 cm/sec AV Gradient Peak 9.8 mmHg AV Mean 5.2 mmHg AV Area 1.2 cm MV Gradient Peak 7.3 mmHg MV Mean 2.1 mmHg MV Area cm COMMENTS: Humanities Professor: Marilin GODWIN Cardiology Associate: 3 Dr. Purcell TAPE# Pericardial Effusion Y DATE OF SERVICE: Adequate 2D, color flow imaging, spectral Doppler, and M-Mode. FINDINGS: No LVH. LV internal dimensions were normal. Wall motion is normal. EF is greater than or equal to 55%. Aortic valve sclerosis without stenosis by Doppler interrogation. Left atrium is normal at 3.7 cm. Mitral valve shows no prolapse. Mild MR. Right-sided chamber is grossly normal. Moderate TR. TRANSINT:[id number] Voice Confirmation ID: [id number] DOCUMENT ID: [id number] ECHOCARDIOGRAM REPORT [id number] FOSTER,RENEAABIDA LOUIS MD at 1042 CC: [id number] DICTATION DATE: 05/27/20 1255 LACQUERER: 05/27/20 1306 ADM IN [facility] [address] [id number]
--- NOTE | 2020-05-31 10:42 | CN ---
PATIENT NAME:RENEA SINGLETARY MEDICAL RECORD: [id number] : 49 LOCATION:[facility] ADMIT DATE: 05/26/20 ACCOUNT: [id number] CONSULTING PHYSICIAN: ABIDA OTT MD REFERRING PHYSICIAN: NIKA MITCHELL MD DATE OF CONSULTATION: 05/27/2020 HISTORY OF PRESENT ILLNESS: A 74-year-old female with a history of breast carcinoma, has a history of atrial fibrillation, LV function has been preserved in the past, admitted with anemia, possible pneumonia and sepsis, fairly rapid course, was noted to have elevated cardiac enzymes. We were asked to see her concerning her cardiovascular status. PAST MEDICAL HISTORY: Includes; 1. History of atrial fibrillation. 2. Hypothyroidism, on replacement. 3. Hypertension. 4. Hyperlipidemia. REGULAR MEDICATIONS: Include Femara 2.5 mg p.o. every day, Eliquis 5 mg p.o. every day, carvedilol 3.125 b.i.d., diltiazem 60 mg p.o. b.i.d., aspirin 81 every day, Lasix 20 every day, Synthroid 125 p.o. daily. SOCIAL HISTORY: Quit smoking several years back. Nondrinker. REVIEW OF SYSTEMS: The patient reports easy bruising but reports no swollen glands. The patient reports no fever, no night sweats, no significant weight gain, no significant weight loss. No significant exercise tolerance. The patient reports no dry eyes, no irritation, no vision change. Patient reports no difficulty hearing and no ear pain. Patient reports no frequent nose bleeds or nose and sinus problems. Patient reports on arm pain on exertion. No shortness of breath while lying down. No history of heart murmur. Patient reports no cough, no wheezing or coughing up blood. Patient reports no abdominal pain, no vomiting. Normal appetite. No diarrhea and not vomiting blood. No nausea and no constipation. Patient reports no incontinence. No difficulty urinating. No hematuria. No increased frequency. Patient reports no muscle aches. No weakness, no arthralgias, no back pain. No swelling of the extremities. Patient reports no abnormal mole, no jaundice, no rashes. Reports no loss of consciousness. No weakness and no numbness. No seizures, dizziness, or headaches. The patient reports no depression, no sleep disturbance, feeling safe in a relationship and no alcohol abuse. Patient reports on fatigue. Reports no runny nose or sinus pressure. No itching, no hives, and no frequent sneezing. PHYSICAL EXAMINATION: GENERAL: Well-developed, well-nourished, in no acute distress, appears stated age. VITAL SIGNS: Blood pressure 109/82, pulse 115 and regular. HEENT: Normocephalic, atraumatic. NECK: No bruits are noted. HEART: Regular, somewhat tachycardic. A II/ systolic ejection murmur. LUNGS: Fairly good air movement. ABDOMEN: Soft and nontender. Pulses 2+. EXTREMITIES: Trace edema. CONSULT REPORT [id number] RENEA SINGLETARY IMPRESSION: Suspect more demand ischemic type 2 myocardial infarction secondary to underlying anemia, tachycardia, possible pneumonitis. Supportive measures as you are doing currently including fluids, antibiotics, and transfusion. We will check echocardiographic study for any focal wall motion abnormalities; however, at this point, supportive measures from a cardiovascular standpoint. TRANSINT:[id number] Voice Confirmation ID: [id number] DOCUMENT ID: [id number] ABIDA OTT MD at 1042 CC: [id number] DICTATION DATE: 05/27/20 1248 PRENATAL GENETIC COUNSELOR: 05/27/20 1304 ADM IN [address] [id number] [place] [address]
[2020-05-31 11:57] LABS: ALBUMIN 2.4 g/dL (3.4-5.0); ANION GAP 12.4 mmol/L (8-16); CALCIUM 8.4 mg/dL (8.5-10.1); CARBON DIOXIDE 24.6 mmol/L (21.0-32.0); CREATININE - SERUM 0.9 mg/dL (0.6-1.3); MAGNESIUM - SERUM 2.1 mg/dL (1.8-2.4); PROTEIN - SERUM 5.9 g/dL (6.4-8.2)
[2020-05-31 12:05] LABS: BASOPHILS 1.1 % (0-2); EOSINOPHILS 4.3 % (0-7); HEMATOCRIT 37.1 % (36.0-48.0); HEMOGLOBIN 10.8 g/dL (12-16); IMMATURE GRANULOCYTES 0.7 % (0-5); LYMPHOCYTE ABS# 0.75 10x3/uL (1.18-3.74); MCH 23.5 pg (26.0-34.0); MCHC 29.1 g/dL (31.0-37.0); MCV 80.8 fL (80.0-100.0); NEUTROPHIL ABS# 3.08 10x3/uL (1.56-6.13); NEUTROPHILS 69.9 % (40-80); RBC 4.59 10x6/uL (4.00-5.40); RDW 21.3 % (11.5-14.5)
[2020-05-31 12:08] LABS: PLATELET COUNT 109 10x3/uL (130-400); WBC 4.4 10x3/uL (4.8-10.8)
[2020-05-31 12:11] VITALS: BP 130/63
--- NOTE | 2020-05-31 12:31 | NUR ---
PT LAYING IN BED. WAITING ON NEWS WHETHER OR NOT TO CALL HER FROM [place] TO COME AUDIO PRODUCTION INSTRUCTOR. VANC RUNNING AT THIS TIME. TOLERATING WELL. CL IN REACH. WCTM
[2020-05-31] MEDS ORDERED: LANOXIN125 MCG PO (13:56)
[2020-05-31] MEDS ORDERED: LOPRESSOR25 MG PO (13:56)
[2020-05-31] MEDS ORDERED: K-DUR20 MEQ PO (13:57)
[2020-05-31] MEDS ORDERED: CARAFATE1 G PO (13:58)
[2020-05-31] MEDS ORDERED: FLORAJEN3 CAPS460 MG PO (13:58)
[2020-05-31] MEDS ORDERED: MUPIROCIN22 GM NASAL (13:58)
[2020-05-31] MEDS ORDERED: LEVOFLOXACIN500 MG PO (14:01)
[2020-05-31] MEDS ORDERED: OMNICEF300 MG PO (14:02)
--- NOTE | 2020-05-31 14:54 | MORECARE ---
CASE MANAGEMENT DISCHARGE SUMMARY PATIENT: RENEA SINGLETARY UNIT: [id number] ADM DATE: 05/26/20 AGE: 74 : 47 SEX: F ROOM/BED: D.2204 AUTHOR: YOSHI,DOC PHYSICIAN: REFERRING PHYSICIAN: NIKA MITCHELL MD DATE OF SERVICE: 05/31/20 Case Management Discharge Planning Summary CT Patient Name: RENEA SINGLETARY Attending MD : MAIRA MITCHELL, Medical Record: [id number] Encounter : [id number] Facility : [address] [place] [address] Medical Admission Date : 113:55 Center Discharge Date : [address] [place] [address] Date of : DC Plan ID : [id number] Age/Sex/Martia : 74/ F/M Printed on : 05/31/20 14:53 CT DCP Review Details Anticipated D/C: Expected LOS : Case Status : INITIATED - Initial Reviewe: [id number] - Otilia Sifuentes Initial Review: 05/26/2020 Planned Disposi: 01 - Home or Self Care (Routine Discharge) Final Discharge: 01 - Home or Self Care (Routine Discharge) Final Reviewer : : Final Review : Comments CT Entered Date Type Reviewer 05/31/20 14:47 CT Discharge Planning Otilia Sifuentes Comment CM met with patient to complete initial dc planning assessment. CM educated patient on the CM role and verbal consent given by patient to complete assessment. Patient lives at home with her spouse and her adult daughter and grandkids where she is independent with her care. At discharge patient plans to return home and feels this is a safe discharge. CM discussed availability of home health, rehab services, and medical equipment. She did not want home health and declination was signed. She has a nebulizer at home, walker and cane. She states that she is independent with her care. I have ordered a walk test to see if she will need home O2. IMM served and explained. Patient denied known discharge needs at this time. CM will continue to follow and will assist as needed with dc plans/needs. DCP Focus Questions & Answers DCP Screen High Risk Factors: None Walking limitation: Patient stated self rated No walking limitation present? Age: 65 - 79 Prior living environment: Lives with others Disability ranking: Grade 1: No significant disability DCP Evaluation Patient's ability to cope with chronic illness a. Adequate (0-3 ED visits in 6 mos., adequate financial resources, attends scheduled appts.) Family / Caregiver's ability to cope with chronic a. Adequate (ability to meet patient's illness: medical needs, ensures patient attends medical appts.) Living Arrangements: Home with Spouse/Significant Other Medication Management: Patient states can afford medications [facility]): [facility] Does Patient have transportation to get home and Yes to follow-up medical appointments when discharged from the hospital? Comments: LIVES WITH SPOUSE DAUGHTER AND GRANDKIDS Would patient like to participate in any Care Not applicable Coordination programs (if applicable): Does the patient have electricity at home? Yes Does the patient have running water in their Yes house? Equipment in use: Walker - Rolling Equipment in use: Nebulizer Equipment in use: Cane - Single Leg Mental health screen: No mental health history Psychosocial status: Independent adult (65+) Resources / Services in place: None DCP Re-evaluation Patient's current cognitive status: *Oriented to person, place, situation, time and present Patient with capacity for self-care or can be Yes cared for in same environment as prior to hospitalization? Would patient like to participate in any Care Not applicable Coordination programs (if applicable): [facility] RENEA SINGLETARY MR#: [id number] /Age/Sex/[id number]-Nce-13 /74/F /M Attending Physician Name: PAULA [id number] Patient Account:[id number] [facility] Page -1 of 1 All edits/amendments must be made on the electronic document DICTATION DATE: 05/31/201452 BUSINESS SERVICES SPECIALIST SALES: MAIN 05/31/201452 RPT#: [id number] DC DATE: STATUS: ADM IN [facility] [address] [place] [address] END OF REPORT
--- NOTE | 2020-05-31 16:46 | NUR ---
PATIENT DC HOME, PATIENT PORT FLUSHED WITH HEPARIN AND REMOVED BY MARK ROSENBAUM. ALL QUESTIONS ANSWERED. PATIENT TAKEN OUT BY COMBINER. CONTINUE WITH PLAN OF CARE
== END 2020-05-31 16:51 | disposition home or self-care (01) | DRG 871 ==
LOC: D.ER 10:50 → D.ICU 13:55 → D.MS 13:55
PROVIDERS: Emergency Medicine; Family Medicine; Internal Medicine Gastroenterology; Internal Medicine Medical Oncology; Internal Medicine Pulmonary Disease; ADMIT Family Medicine; ATTEND Family Medicine
PROC: 0DB78ZX Excision of Stomach, Pylorus, Via Natural or Artificial Opening Endoscopic, Diagnostic (ICD-10-PCS; principal; 2020-05-28 10:00)
DX: A41.9 Sepsis, unspecified organism (principal); J18.9 Pneumonia, unspecified organism; R65.21 Severe sepsis with septic shock; G93.41 Metabolic encephalopathy; I21.A1 Myocardial infarction type 2; I48.20 Chronic atrial fibrillation, unspecified; D62 Acute posthemorrhagic anemia; Z20.822 Contact with and (suspected) exposure to COVID-19; E03.9 Hypothyroidism, unspecified; E78.5 Hyperlipidemia, unspecified; E87.6 Hypokalemia; Z85.3 Personal history of malignant neoplasm of breast; D64.9 Anemia, unspecified; Z86.73 Personal history of transient ischemic attack (TIA), and cerebral infarction without residual deficits; D69.6 Thrombocytopenia, unspecified; K21.9 Gastro-esophageal reflux disease without esophagitis; I50.9 Heart failure, unspecified; I11.0 Hypertensive heart disease with heart failure

== ENCOUNTER → 2020-07-13 09:44 | Outpatient (CLI) | payer MEDICARE ==
[2020-05-27 08:23] VITALS: BMI 24.3
[~2020-07-13 09:44] MED LIST changes: +CARAFATE1 G PO; +CARDIZEM60 MG PO; +COREG 3.1253.125 MG PO; +ELIQUIS5 MG PO; +FEMARA2.5 MG PO; +FLORAJEN3 CAPS460 MG PO; +FUROSEMIDE20 MG PO; +K-DUR20 MEQ PO; +LANOXIN125 MCG PO; +LEVOFLOXACIN500 MG PO; +LOPRESSOR25 MG PO; +MUPIROCIN22 GM NASAL; +OMNICEF300 MG PO; +PROTONIX40 MG PO; +SYNTHROID125 MCG PO
== END | disposition home or self-care (01) ==
LOC: D.CT 07-12 11:30
PROVIDERS: ATTEND Internal Medicine Pulmonary Disease
DX: R91.8 Other nonspecific abnormal finding of lung field (principal)

== ENCOUNTER 2020-07-22 07:59 | Day surgery (SDC) | payer MEDICARE, OTHER ==
[~2020-07-22] VITALS: Ht 167.6 cm; Wt 63.6 kg
[2020-07-22 08:27] LABS: EOSINOPHILS 2.5 % (0-7); HEMATOCRIT 33.8 % (36.0-48.0); HEMOGLOBIN 10.8 g/dL (12-16); LYMPHOCYTES 16.6 % (15-50); MCH 26.3 pg (26.0-34.0); MCHC 31.9 g/dL (31.0-37.0); MCV 82.6 fL (80.0-100.0); MONOCYTES 9.1 % (2-11); NEUTROPHILS 70.8 % (40-80); RBC 4.09 10x6/uL (4.00-5.40); WBC 3.4 10x3/uL (4.8-10.8)
[2020-07-22 08:28] LABS: PLATELET COUNT 203 10x3/uL (130-400)
[2020-07-22 08:37] LABS: APTT 32.1 SECONDS (22.8-39.4)
[2020-07-22 08:38] LABS: INR 1.23 (0.85-1.17); PROTIME 14.4 SECONDS (11.6-15.0)
[2020-07-22 09:58] VITALS: Ht 167.6 cm; Wt 63.6 kg
--- NOTE | 2020-07-22 16:20 | NUR ---
ALLERGY REVIEWED. PT STATED SHE DOES TAKE METOPROLOL AT HOME AND HAS NO REACTION. REVIEWED ALLERGY WITH PT.
--- NOTE | 2020-07-22 18:41 | NUR ---
1800 IV REMOVED AND PRESSURE HELD. INSTRUCTIONS GIVEN. 1830 PT D/C HOME, NO COUGHING UP OF BLOOD
[2020-07-23 13:59] LABS: ACID FAST SMEAR Negative (()); AFB SPECIMEN PROCESSING Concentration (()); AFB SPECIMEN PROCESSING Not Indicated (())
[2020-07-23 15:12] LABS: FUNGUS STAIN Final report (())
== END 2020-07-22 18:30 | disposition home or self-care (01) ==
LOC: D.OPS 07:59
PROVIDERS: Internal Medicine Pulmonary Disease; ATTEND Nurse Practitioner Family
DX: R91.8 Other nonspecific abnormal finding of lung field (principal); Z85.3 Personal history of malignant neoplasm of breast; Z86.73 Personal history of transient ischemic attack (TIA), and cerebral infarction without residual deficits; K21.9 Gastro-esophageal reflux disease without esophagitis; I48.91 Unspecified atrial fibrillation; R06.09 Other forms of dyspnea; I25.10 Atherosclerotic heart disease of native coronary artery without angina pectoris